=== PATIENT | male | born 1975 | race Caucasian/White ===

== ENCOUNTER 2019-10-23 08:38 | Outpatient (BNVA) | payer OTHER, SELFPAY | END 2019-11-10 23:59 | PROVIDERS: Family Provider Nurse Practitioner Family; PCP Nurse Practitioner Family; Visit Provider Nurse Practitioner Psychiatric/Mental Health | DX: F33.1 Major depressive disorder, recurrent, moderate (principal); F41.1 Generalized anxiety disorder; F17.210 Nicotine dependence, cigarettes, uncomplicated | CPT/HCPCS: 99213 ==

== ENCOUNTER 2020-03-18 16:29 | Emergency (ER) | payer SELFPAY ==
[2020-03-18 16:52] VITALS: BP 138/87; PULSE 75; RESP 18; TEMP 36.7; O2SAT 96; BMI 30.7
== END 2020-03-18 19:34 | disposition left against medical advice (07) ==
LOC: ER 16:41
PROVIDERS: Emergency Provider Nurse Practitioner Family; PCP Family Medicine
DX: Z53.21 Procedure and treatment not carried out due to patient leaving prior to being seen by health care provider (principal)
CPT/HCPCS: 99281

== ENCOUNTER → 2020-05-10 07:44 | Outpatient (BNVA) | payer MEDICAID, SELFPAY | PROVIDERS: Visit Provider Nurse Practitioner Psychiatric/Mental Health | DX: F33.9 Major depressive disorder, recurrent, unspecified (principal); F41.1 Generalized anxiety disorder; F10.20 Alcohol dependence, uncomplicated | CPT/HCPCS: 99212 ==

== ENCOUNTER → 2020-05-12 07:55 | Outpatient (BNVA) | payer MEDICAID, SELFPAY | PROVIDERS: Visit Provider Counselor Professional | DX: F33.9 Major depressive disorder, recurrent, unspecified (principal); F41.1 Generalized anxiety disorder; F10.20 Alcohol dependence, uncomplicated | CPT/HCPCS: 90834 ==

== ENCOUNTER → 2020-06-07 10:00 | Outpatient (BNVA) | payer MEDICAID, SELFPAY | PROVIDERS: Visit Provider Nurse Practitioner Psychiatric/Mental Health | DX: F33.9 Major depressive disorder, recurrent, unspecified (principal); F41.1 Generalized anxiety disorder; F10.20 Alcohol dependence, uncomplicated | CPT/HCPCS: 99212 ==

== ENCOUNTER → 2020-07-13 09:14 | Outpatient (BNVA) | payer MEDICAID, SELFPAY | PROVIDERS: Visit Provider Nurse Practitioner Psychiatric/Mental Health | DX: F33.9 Major depressive disorder, recurrent, unspecified (principal); F41.1 Generalized anxiety disorder | CPT/HCPCS: G0463 ==

== ENCOUNTER → 2020-10-05 07:39 | Outpatient (BNVA) | payer MEDICAID, SELFPAY | PROVIDERS: Visit Provider Nurse Practitioner Psychiatric/Mental Health | DX: F33.9 Major depressive disorder, recurrent, unspecified (principal); F41.1 Generalized anxiety disorder | CPT/HCPCS: 99212 ==

== ENCOUNTER 2020-10-11 09:08 | Observation (INO) | payer MEDICAID, SELFPAY ==
[2020-10-11 09:13] VITALS: BP 134/91; PULSE 73; RESP 16; TEMP 36.6; O2SAT 98; BMI 30.7
--- NOTE | 2020-10-11 09:16 | XRR_ITS ---
PROCEDURE INFORMATION: Exam: XR Chest, 1 View Exam date and time: 10/11/2020 9:20 AM Age: 45 years old Clinical indication: Chest pain; Prior surgery; Surgery type: Spine; Additional info: Chest pain/arm pain since am TECHNIQUE: Imaging protocol: XR of the chest Views: 1 view. COMPARISON: CR Chest 2 views* [id number] 08/13/2019 4:00 PM FINDINGS: Lungs: Subtle airspace disease right lung base. Pleural space: Unremarkable. No pleural effusion. No pneumothorax. Heart/Mediastinum: Unremarkable. No cardiomegaly. Bones/joints: Caldwell rods and pedicle plates stabilizing the thoracic spine. XR/XR chest 1V portable [id number] IMPRESSION: Subtle airspace disease right lung base. Consider two-view chest.
--- NOTE | 2020-10-11 09:17 | ECG_ITS ---
[facility] Test Date: 2020-10-11 Pat Name: Miky Edwards Department: Room: Gender: Male Superintendent Of Generation: : 1975 Requested By: Allan Montez Order Number: [id number] Delia MD: Archana Marroquin M.D. Measurements Intervals [place] Rate: 68 P: 13 [place]: 167 QRS: 34 QRSD: 105 T: 55 QT: 377 QTc: 403 Interpretive Statements SINUS RHYTHM Compared to ECG 08/13/2019 15:36:58 No significant changes Electronically Signed On 10-11-2020 20:29:16 TURRET PUNCH OPERATOR by Archana Marroquin M.D. [id number] f
--- NOTE | 2020-10-11 09:20 | W.ED.CHESTPA ---
HPI - Chest Pain General: Chief Complaint: Chest Pain Stated Complaint: CHEST PAIN/ ARM PAIN Time Seen by Provider: 10/11/20 09:10 History of Present Illness: HPI narrative: 45-year-old male comes in complaining chest pain began this morning about 2 hours prior to arrival. He was sitting at rest watching videos on the computer when it began. He notes that with palpation across the anterior chest as well as with deep breathing the pain is worse. He reports he has a history of hypertension and rapid heart irregular heart rate for which she takes metoprolol and lisinopril. He is not on any blood thinners. In 2017 he reports having a stress test which evidently was normal. Has not had any nausea vomiting or diaphoresis with this. He has no positio manges will exacerbate his pain. MD complaint: chest pain Onset (ago): hour(s) Timing of current episode: episodic Onset: during rest Pain location: substernal and right chest Pain radiation: right arm and left arm Severity: moderate Quality: sharp Relieving factors: nothing Exacerbating factors: inspiration and palpation Associated symptoms: Reports vomiting; Deny abdominal pain, diaphoresis, dyspnea, fever(s), leg edema, nausea, palpitations, sense of impending doom or syncope Treatment prior to arrival: none Review of Systems Const: Denies: fever(s) or diaphoresis ENMT: Denies: throat pain, ear or mastoid pain, nasal discharge or nasal congestion Card: Denies: palpitations or syncope Resp: Denies: dyspnea GI: Reports: vomiting; Denies: abdominal pain or nausea : Denies: flank pain, dysuria, urinary frequency or urinary urgency Skin/Breast: Denies: rash or pruritus [facility] PFSH: Medical History (Updated 10/11/20 @ 13:07 by Allan Cardona DO) Alcohol dependence Benign essential HTN Fatigue Heart disease High blood pressure Smoking Ventricular arrhythmia Surgical History History of cholecystectomy Previous back surgery Family History Other CAD (coronary artery disease) Cancer Hypertension Social History Smoking and tobacco status: current every day smoker cigarettes Packs smoked per day: 1.5 Alcohol intake: current Alcohol intake frequency: 3 or more drinks per day Alcohol type: beer Household members: spouse and children Marital status: Number of children: 2 Highest education level completed: 8th Grade service: No Current occupational status: unemployed Pets and animals: Yes Current gender identity: Male Physical Exam Const: COMMON NORMALS: no acute distress GENERAL APPEARANCE: cooperative and comfortable ORIENTATION/CONSCIOUSNESS: Yes awake, Yes oriented to person, Yes oriented to place and Yes oriented to time HENMT: COMMON NORMALS: normocephalic, atraumatic and hearing grossly normal bilaterally HEAD & SCALP: normocephalic and atraumatic Neck/C-Spine: COMMON NORMALS: no JVD Chest: OTHER: Chest pain reproducible with palpation along the right sternal border in the lower section as well as with deep inspiration. Resp: COMMON NORMALS: normal respiratory effort, No retractions, No use of accessory muscles and clear to auscultation bilaterally AUSCULTATION: clear to auscultation bilaterally Cardio: COMMON NORMALS: no JVD, regular rate, regular rhythm and No murmurs present (Cardio) RATE: regular rate RHYTHM: regular rhythm GI: COMMON NORMALS: Soft to palpation and No hepatosplenomegaly present AUSCULTATION: Yes normoactive bowel sounds PALPATION: Yes Soft to palpation, No Tenderness to palpation present (GI), No Guarding due to palpation present (GI) and Yes No hepatosplenomegaly present Extremity: COMMON NORMALS: normal to inspection, capillary refill normal, no clubbing, cyanosis or edema, no calf tenderness and no pedal edema Neuro: SENSORIUM/ORIENTATION: Yes oriented to person, Yes oriented to place and Yes oriented to time Skin: COMMON NORMALS: no rashes or lesions noted GENERAL SKIN EXAM: no rashes or lesions noted Course Vital Signs: Vital signs: Vital Signs Temperature 97.8 F 10/11/20 09:13 Pulse Rate 72 10/11/20 11:03 Respiratory Rate 18 10/11/20 11:03 Blood Pressure 127/77 10/11/20 11:03 Pulse Oximetry 96 10/11/20 11:03 MDM - Chest Pain MDM Narrative: Medical decision making narrative: Positive troponin. His EKGs are unremarkable as to our troponin was also higher by 100. Is given Lovenox and then after discussion with Dr. Kim started on heparin and Nitropaste he is pain-free at this time will admit to hospitalist and consult cardiology Dr. Kim will be seeing him discussed with the patient. Lab Data: Labs: Lab Results 10/11/20 10/11/20 10/11/20 Range/Units 10:30 10:30 10:30 WBC 6.3 (4.0-10.0) 10^3/ uL RBC 5.36 H (4.1-5.3) 10^6/u L Hgb 17.1 H (11.7-16.6) g/dL Hct 52.0 (42.0-52.0) % MCV 97.0 H (80-94) fL MCH 31.9 (28.0-34.0) pg MCHC 32.9 (30.0-36.0) g/dL RDW 14.6 (12.1-15.1) % Plt Count 275 (130-400) 10^3/c mm MPV 10.0 (7.4-10.4) fL Neut % (Auto) 58.6 % Lymph % (Auto) 31.2 % [place] % (Auto) 6.3 % Eos % (Auto) 3.2 % Baso % (Auto) 0.5 % Neut # (Auto) 3.71 (1.8-7.7) 10^3/u L Lymph # (Auto) 2.0 (0.8-4.8) 10^3/u L [place] # (Auto) 0.4 (0.2-0.9) 10^3/u L Eos # (Auto) 0.2 (0.0-0.8) 10^3/u L Baso # (Auto) 0.0 (0.0-0.1) 10^3/u L Nucleated RBC % (a uto) 0 % Nucleated RBCs # 0.0 /100WBC Sodium 139 (136-145) mmol/L Potassium 4.9 (3.5-5.1) mmol/L Chloride 102 (98-107) mmol/L Carbon Dioxide 28 (22-29) mmol/L Anion Gap 13.9 (5-19) BUN 8 (6-20) mg/dL Creatinine 0.8 (0.7-1.2) mg/dL GFR Calculation 104.1 (90-130) mL/min Glucose 75 (65-115) mg/dL Calculated Osmolal ity 285 (285-295) mOsm/k g Calcium 9.5 (8.5-10.5) mg/dL Total Bilirubin 0.3 (0.15-1.2) mg/dL AST 21 (0-40) U/L ALT 18 (0-41) U/L Alkaline Phosphata se 86 (40-130) IU/L Troponin T Baselin e 305 H* (0-15) ng/L Troponin T 120 Min ronny (0-15) ng/L Delta Troponin T (0-10) ABS# Total Protein 6.6 (6.6-8.7) g/dL Albumin 4.3 (3.5-5.2) g/dL Globulin 2.3 (1.3-4.6) g/dL 10/11/20 Range/Units 11:45 WBC (4.0-10.0) 10^3/ uL RBC (4.1-5.3) 10^6/u L Hgb (11.7-16.6) g/dL Hct (42.0-52.0) % MCV (80-94) fL MCH (28.0-34.0) pg MCHC (30.0-36.0) g/dL RDW (12.1-15.1) % Plt Count (130-400) 10^3/c mm MPV (7.4-10.4) fL Neut % (Auto) % Lymph % (Auto) % [place] % (Auto) % Eos % (Auto) % Baso % (Auto) % Neut # (Auto) (1.8-7.7) 10^3/u L Lymph # (Auto) (0.8-4.8) 10^3/u L [place] # (Auto) (0.2-0.9) 10^3/u L Eos # (Auto) (0.0-0.8) 10^3/u L Baso # (Auto) (0.0-0.1) 10^3/u L Nucleated RBC % (a uto) % Nucleated RBCs # /100WBC Sodium (136-145) mmol/L Potassium (3.5-5.1) mmol/L Chloride (98-107) mmol/L Carbon Dioxide (22-29) mmol/L Anion Gap (5-19) BUN (6-20) mg/dL Creatinine (0.7-1.2) mg/dL GFR Calculation (90-130) mL/min Glucose (65-115) mg/dL Calculated Osmolal ity (285-295) mOsm/k g Calcium (8.5-10.5) mg/dL Total Bilirubin (0.15-1.2) mg/dL AST (0-40) U/L ALT (0-41) U/L Alkaline Phosphata se (40-130) IU/L Troponin T Baselin e (0-15) ng/L Troponin T 120 Min ronny 416.6 H (0-15) ng/L Delta Troponin T 111.6 H* (0-10) ABS# Total Protein (6.6-8.7) g/dL Albumin (3.5-5.2) g/dL Globulin (1.3-4.6) g/dL Discharge Plan Discharge Patient Disposition: Admitted As Inpatient Clinical Impression: Elevated troponin, Non-ST elevation ID (NSTEMI) Condition: Stable Prescriptions: No Action metoprolol tartrate 25 mg tablet See Rx Instructions .ROUTE .COMPLEX Qty: 60 RF: 3 venlafaxine 25 mg tablet 25 mg PO BID@06,20 RF: 0 lisinopril 5 mg tablet 5 mg PO DAILY@06 RF: 0 Coding Level of Care Code ED Disc Recordist for Liv Fwd Exam Comprehensive
[2020-10-11 10:36] LABS: Basophils % 0.5 %; Eosinophils # 0.2 10^3/uL (0.0-0.8); Eosinophils % 3.2 %; Hemoglobin 17.1 g/dL (11.7-16.6); Lymphocytes % 31.2 %; Mean Corpuscular HGB Conc 32.9 g/dL (30.0-36.0); Mean Corpuscular Hemoglobin 31.9 pg (28.0-34.0); Monocytes # 0.4 10^3/uL (0.2-0.9); Monocytes % 6.3 %; Neutrophils # 3.71 10^3/uL (1.8-7.7); Neutrophils % 58.6 %; Nucleated Red Blood Cells % 0 %; Platelet Count 275 10^3/cmm (130-400); Red Blood Count 5.36 10^6/uL (4.1-5.3); Red Cell Distribution Width 14.6 % (12.1-15.1); White Blood Count 6.3 10^3/uL (4.0-10.0)
--- NOTE | 2020-10-11 10:36 | XRR_ITS ---
PROCEDURE INFORMATION: Exam: XR Chest, 2 Views Exam date and time: 10/11/2020 10:41 AM Age: 45 years old Clinical indication: Chest pain; Type not specified; Prior surgery; Surgery type: Back scoliosis TECHNIQUE: Imaging protocol: XR of the chest Views: 2 views. COMPARISON: CR XR chest 1V portable [id number] 10/11/2020 9:16 AM FINDINGS: Lungs: Lungs are well aerated without a focal area of consolidation. Pleural space: Unremarkable. No pleural effusion. No pneumothorax. Heart/Mediastinum: Unremarkable. No cardiomegaly. Bones/joints: Caldwell rods and pedicle plates stabilizing the thoracic spine. XR/XR chest 2V* [id number] IMPRESSION: Lungs are well aerated without a focal area of consolidation.
[2020-10-11 10:57] LABS: Alanine Aminotransferase 18 U/L (0-41); Albumin Level 4.3 g/dL (3.5-5.2); Alkaline Phosphatase 86 IU/L (40-130); Anion Gap 13.9 (5-19); Aspartate Amino Transferase 21 U/L (0-40); Blood Urea Nitrogen 8 mg/dL (6-20); Calcium 9.5 mg/dL (8.5-10.5); Carbon Dioxide 28 mmol/L (22-29); Chloride 102 mmol/L (98-107); Globulin 2.3 g/dL (1.3-4.6); Glomerular Filtration Rate 104.1 mL/min (90-130); Glucose 75 mg/dL (65-115); Osmolality Calculated 285 mOsm/kg (285-295); Potassium 4.9 mmol/L (3.5-5.1); Sodium 139 mmol/L (136-145); Total Bilirubin 0.3 mg/dL (0.15-1.2); Total Protein 6.6 g/dL (6.6-8.7)
[2020-10-11 11:01] LABS: Troponin(5th) Baseline 305 ng/L (0-15)
[2020-10-11 11:03] VITALS: BP 127/77; PULSE 72; RESP 18; O2SAT 96
--- NOTE | 2020-10-11 11:17 | ECG_ITS ---
[facility] Test Date: 2020-10-11 Pat Name: Miky Edwards Department: Room: Gender: Male Comber Fixer: : 1975 Requested By: Allan Montez Order Number: [id number] Lin MD: Archana Marroquin M.D. Measurements Intervals [place] Rate: 73 P: 32 [place]: 176 QRS: 47 QRSD: 103 T: 63 QT: 370 QTc: 410 Interpretive Statements SINUS RHYTHM Compared to ECG 10/11/2020 09:14:16 No significant changes Electronically Signed On 10-11-2020 20:54:51 PARTS REPRESENTATIVE by Archana Marroquin M.D. [id number] f
[2020-10-11] MEDS: enoxaparin 100 mg/mL Syringe SUBCUT (11:48)
[2020-10-11] MEDS: nitroglycerin 1 gm/inch oint Pkt 1 INCH TOPICAL (11:48)
--- NOTE | 2020-10-11 12:07 | PC.NURSE ---
Patient assigned to room 108 on 1[address]. Room is not clean at this time. Called to establish timeline for patient report and transfer of patient. Nurse agreed to call for report once the room is ready. Will call back hourly for update.
[2020-10-11 12:22] LABS: Troponin 5 2HR 416.6 ng/L (0-15); Troponin 5 2HR Delta 111.6 ABS# (0-10)
--- NOTE | 2020-10-11 12:40 | PC.NURSE ---
Room 108 now unavailable
--- NOTE | 2020-10-11 13:20 | PM.HP ---
Providers/Chief Complaint Chief Complaint: CHEST PAIN/ ARM PAIN History of Present Illness Miky Edwards is a 45 year old male with past medical history of hypertension, arrhythmias, regular alcohol intake and tobacco abuse who presented to emergency room with complaint of chest pain which started prior to presentation. It was substernal with radiation to both shoulders. Moderate in intensity. Described as tightness and pain. Lasted about 20 to 25 minutes. Improved with aspirin and nitroglycerin provided in ambulance. Then the patient received nitro paste in the emergency room which relieved the pain. EKG showed no acute ischemic changes. Chest x-ray was unremarkable. However the troponin was significantly elevated. The patient reports similar pain in the past. He was told before that he had irregular heartbeats. Does not remember the exact type. Denies associated diaphoresis, shortness of breath, palpitations, dizziness or lightheadedness, nausea or vomiting, heartburn. Review of Systems General: Reports: 10 or more systems reviewed and unremarkable except in HPI and below Medications/Allergies Home Medications Medication Instructions Recorded Confirmed Last Taken Type metoprolol tartrate 25 mg tablet See Rx Instructions .ROUTE 10/04/20 10/11/20 10/11/20 Rx .COMPLEX #60 tablet lisinopril 5 mg PO DAILY@06 10/11/20 10/11/20 10/11/20 History venlafaxine 25 mg PO BID@10/11/20 10/11/20 10/11/20 History Allergies Allergy/AdvReac Type Severity Reaction Status Date / Time Penicillins Allergy Unknown rash Verified 07/27/20 09:07 PFSH Acute PFSH: Medical History (Updated 10/11/20 @ 13:07 by Allan Cardona DO) Alcohol dependence Benign essential HTN Fatigue Heart disease High blood pressure Smoking Ventricular arrhythmia Surgical History History of cholecystectomy Previous back surgery Family History Other CAD (coronary artery disease) Cancer Hypertension Social History Smoking and tobacco status: current every day smoker cigarettes Packs smoked per day: 1.5 Alcohol intake: current Alcohol intake frequency: 3 or more drinks per day Alcohol type: beer Household members: spouse and children Marital status: Number of children: 2 Highest education level completed: 8th Grade service: No Current occupational status: unemployed Pets and animals: Yes Current gender identity: Male Vitals/I&O/Wt Last Vital Signs Temp 97.8 F 10/11/20 09:13 Pulse 72 10/11/20 11:03 Resp 18 10/11/20 11:03 BP 127/77 10/11/20 11:03 Pulse Ox 96 10/11/20 11:03 Weight last 48 hrs Weight 99.79 kg Physical Exam Narrative: EXAM NARRATIVE: The patient is awake alert and oriented. No acute distress. Mood and affect are appropriate. Responses are adequate. Skin is warm and dry. Moist mucous memories. Eyes PERRLA, extraocular muscles are intact. Normal speech. Neck supple. No JVD Lungs clear to auscultation bilaterally. No wheezes or crackles Heart S1, S2, regular Abdomen soft, nontender, bowel sounds are present Extremities no edema cyanosis or calf tenderness bilaterally. No tremors. Neuro exam is nonfocal. Data : 10/11/20 10:30 10/11/20 10:30 Other Labs: Laboratory Results WBC 6.3 10^3/uL (4.0-10.0) 10/11/20 10:30 RBC 5.36 10^6/uL (4.1-5.3) H 10/11/20 10:30 Hgb 17.1 g/dL (11.7-16.6) H 10/11/20 10:30 Hct 52.0 % (42.0-52.0) 10/11/20 10:30 MCV 97.0 fL (80-94) H 10/11/20 10:30 MCH 31.9 pg (28.0-34.0) 10/11/20 10:30 MCHC 32.9 g/dL (30.0-36.0) 10/11/20 10:30 RDW 14.6 % (12.1-15.1) 10/11/20 10:30 Plt Count 275 10^3/cmm (130-400) 10/11/20 10:30 MPV 10.0 fL (7.4-10.4) 10/11/20 10:30 Neut % (Auto) 58.6 % 10/11/20 10:30 Lymph % (Auto) 31.2 % 10/11/20 10:30 [place] % (Auto) 6.3 % 10/11/20 10:30 Eos % (Auto) 3.2 % 10/11/20 10:30 Baso % (Auto) 0.5 % 10/11/20 10:30 Neut # (Auto) 3.71 10^3/uL (1.8-7.7) 10/11/20 10:30 Lymph # (Auto) 2.0 10^3/uL (0.8-4.8) 10/11/20 10:30 [place] # (Auto) 0.4 10^3/uL (0.2-0.9) 10/11/20 10:30 Eos # (Auto) 0.2 10^3/uL (0.0-0.8) 10/11/20 10:30 Baso # (Auto) 0.0 10^3/uL (0.0-0.1) 10/11/20 10:30 Nucleated RBC % (auto) 0 % 10/11/20 10:30 Nucleated RBCs # 0.0 /100WBC 10/11/20 10:30 Sodium 139 mmol/L (136-145) 10/11/20 10:30 Potassium 4.9 mmol/L (3.5-5.1) 10/11/20 10:30 Chloride 102 mmol/L (98-107) 10/11/20 10:30 Carbon Dioxide 28 mmol/L (22-29) 10/11/20 10:30 Anion Gap 13.9 (5-19) 10/11/20 10:30 BUN 8 mg/dL (6-20) 10/11/20 10:30 Creatinine 0.8 mg/dL (0.7-1.2) 10/11/20 10:30 GFR Calculation 104.1 mL/min (90-130) 10/11/20 10:30 Glucose 75 mg/dL (65-115) 10/11/20 10:30 Calculated Osmolality 285 mOsm/kg (285-295) 10/11/20 10:30 Calcium 9.5 mg/dL (8.5-10.5) 10/11/20 10:30 Total Bilirubin 0.3 mg/dL (0.15-1.2) 12/21/20 10:30 AST 21 U/L (0-40) 10/11/20 10:30 ALT 18 U/L (0-41) 10/11/20 10:30 Alkaline Phosphatase 86 IU/L (40-130) 10/11/20 10:30 Troponin T Baseline 305 ng/L (0-15) H* 10/11/20 10:30 Troponin T 120 Minute 416.6 ng/L (0-15) H 10/11/20 11:45 Delta Troponin T 111.6 ABS# (0-10) H* 10/11/20 11:45 Total Protein 6.6 g/dL (6.6-8.7) 10/11/20 10:30 Albumin 4.3 g/dL (3.5-5.2) 10/11/20 10:30 Globulin 2.3 g/dL (1.3-4.6) 10/11/20 10:30 Impressions Chest X-Ray 10/11/20 10:36 IMPRESSION: Lungs are well aerated without a focal area of consolidation. A&P Additional A&P Information 45-year-old male with past medical history of hypertension, tobacco and alcohol abuse, possible arrhythmias in the past who is presenting with chest pain. Has elevated troponin. EKG and chest x-ray are unremarkable. Acute coronary syndrome/non-ST elevation ND. Dr. Kim, cardiology is called. We appreciate his input. The patient is started on Lovenox. He already has received aspirin. Currently on Nitropaste. Chest pain has resolved. We will continue beta-sandor. We will add Lipitor 80 mg daily. We will continue tracing troponin level and monitoring him on telemetry. We will check his fasting lipids in the morning. Hypertension. Currently well controlled. Continue current management. History of tobacco abuse. Counseling is provided. The patient verbalized understanding. However he expressed no clear commitment to quitting. Excessive alcohol intake. The patient reports drinking on daily basis occasionally in large amounts. We will start him on CIWA protocol and vitamin replacements. DVT prophylaxis. Lovenox. CODE STATUS. He wants to be full code. The plan of care was discussed with the patient. He verbalized understanding and agreement. Attestations Medical Necessity Statement*: Probably the patient will require 1 or 2 midnights. Observation. Coding Level of Care Code Acute Flight Line Service Attendant for joshua Crisostomo
[2020-10-11 14:00] LABS: Lipase 32 U/L (13-60)
--- NOTE | 2020-10-11 15:17 | ECG_ITS ---
[facility] Test Date: 2020-10-11 Pat Name: Miky Edwards Department: Room: Gender: Male Sample Steamer: : 1975 Requested By: Allan Montez Order Number: [id number] Lin MD: Archana Marroquin M.D. Measurements Intervals [place] Rate: 74 P: 39 [place]: 181 QRS: 45 QRSD: 116 T: 49 QT: 389 QTc: 434 Interpretive Statements SINUS RHYTHM MODERATE INTRAVENTRICULAR CONDUCTION DELAY [110+ ms QRS DURATION] Compared to ECG 10/11/2020 11:14:28 Intraventricular conduction delay now present Electronically Signed On 10-11-2020 20:49:40 OVEN OPERATOR by Archana Marroquin M.D. [id number]
--- NOTE | 2020-10-11 16:58 | PM.CONSULT ---
Providers/Reason For Consult Consulting Physican/Specialty*: ARMIN Kim MD/cardiology Reason for Consult*: Patient with chest pain and elevated troponin T Attending Physician: Judah Jimenes History of Present Illness History of Present Illness Miky Edwards is a 45 year old male with a history of hypertension, heavy smoking abuse and alcohol abuse, presented to the emergency room today with complaints of a prolonged episode of chest pain. Patient has a history of chest pain off and on for many years. He has been in his baseline state of health up until this morning when he had an episode of prolonged chest pain.The pain was pressure-like in nature, radiating across the chest, to both shoulders and also down to both arms. He had some tingling, nausea, vomiting and shortness of breath with the pain. the intensity of the pain went up to 10/10. After waiting 15 minutes or so, his called the ambulance and the patient was brought to the emergency room. In the ambulance, he was given 2 aspirin and 1 sublingual nitroglycerin. The pain started subsiding. It took almost 2 hours for the pain to completely go away. At the time of my examination, patient is pain-free. He may have some tight feeling in the chest intermittently. He has no other associated symptoms. He has no previous history for any myocardial infarction or congestive heart failure. He had a couple of stress test in the past which were unremarkable. He might have have taken 100 ounces of beer last night. He smokes 1-1/2 to 2 pack a day for the last more than 30 years. He also uses marijuana. No other substance abuse. His father had a myocardial infarction in his 50s or 60s. He has a history of high blood pressure, GERD. Review of Systems Narrative: CONSTITUTIONAL: No fever or chills. EYES: No blurring of vision or other visual disturbances lately. ENT: No hoarseness of voice, auditory disturbances or sore throat. CARDIOVASCULAR: As mentioned above. RESPIRATORY: No significant cough. May have some dyspnea on exertion. GASTROINTESTINAL: No hematemesis or melena. GENITOURINARY: No dysuria or hematuria. INTEGUMENTARY: No skin rashes or history of skin cancer. NEURO: No transient ischemic attacks or amaurosis. PSYCHIATRIC: No history of psychosis or major depression. HEMATOLOGIC: No bleeding disorders or significant anemia. ENDOCRINE: No history of polyuria or polydipsia. MUSCULOSKELETAL: No recent joint pain or swelling. ALLERGY/IMMUNOLOGY: As mentioned above. Meds/Allergies Home Medications and Allergies Home Medications Medication Instructions Recorded Confirmed Last Taken Type metoprolol tartrate 25 mg tablet See Rx Instructions .ROUTE 10/04/20 10/11/20 10/11/20 Rx .COMPLEX #60 tablet lisinopril 5 mg PO DAILY@06 10/11/20 10/11/20 10/11/20 History venlafaxine 25 mg PO BID@10/11/20 10/11/20 10/11/20 History Allergies Allergy/AdvReac Type Severity Reaction Status Date / Time Penicillins Allergy Unknown rash Verified 07/27/20 09:07 PFSH Acute PFSH: Medical History Alcohol dependence Benign essential HTN Fatigue Heart disease High blood pressure Smoking Ventricular arrhythmia Surgical History History of cholecystectomy Previous back surgery Family History Other CAD (coronary artery disease) Cancer Hypertension Social History Smoking and tobacco status: current every day smoker cigarettes Packs smoked per day: 1.5 Alcohol intake: current Alcohol intake frequency: 3 or more drinks per day Alcohol type: beer Household members: spouse and children Marital status: Number of children: 2 Highest education level completed: 8th Grade service: No Current occupational status: unemployed Pets and animals: Yes Current gender identity: Male Vitals/I&O/Wt Last Vital Signs Temp 97.8 F 10/11/20 09:13 Pulse 72 10/11/20 11:03 Resp 18 10/11/20 11:03 BP 127/77 10/11/20 11:03 Pulse Ox 96 10/11/20 11:03 Weight last 48 hrs Weight 220 lb Physical Exam Narrative: EXAM NARRATIVE: GENERAL: The patient is alert and oriented times three. Not in any acute distress. Unkempt HEENT: No significant pallor, icterus or lymphadenopathy. The pupils are reactant to light. Oral cavity: There are no mucous membrane lesions. Funduscopic examination: The fundus is not visually NECK: Trachea appears to be central. No masses noted. No JVD or thyromegaly appreciated. No carotid bruit. RESPIRATORY: Chest is symmetrical. No intercostals muscle retraction or any accessory muscle activation. There is no chest wall tenderness. Breath sounds are heard bilaterally. No rales or rhonchi heard. No evidence of any consolidation. BREASTS: Deferred. HEART: The PMI could not be palpated. No other palpable precordial events. First and second heart sounds are normal. No S3 or S4. No significant murmurs. No pericardial rub ABDOMEN: No vessel pulsations or distention. No tenderness. No organomegaly appreciated. No abdominal bruit. Bowel sounds are normally heard. : Deferred. RECTAL: Deferred. LYMPHATIC: No lymphadenopathy noted in the neck or groin. EXTREMITIES: No edema or cyanosis. No clubbing. Peripheral pulses are palpable in fairly good volume and amplitude. MUSCULOSKELETAL: No acute joint deformities or swelling SKIN: There are no significant scars or skin rash noted. NEUROPSYCHIATRIC: The patient is alert and oriented x3. Appears to be in a good mood. The higher functions are grossly within normal limits. No tremors or rigidity noted. Data Labs: Other Labs: Laboratory Last Values WBC 6.3 10^3/uL (4.0- 10.0) 10/11/20 10:30 RBC 5.36 10^6/uL (4.1 -5.3) H 10/11/20 10:30 Hgb 17.1 g/dL (11.7-1 6.6) H 10/11/20 10:30 Hct 52.0 % (42.0-52.0 ) 10/11/20 10:30 MCV 97.0 fL (80-94) H 10/11/20 10:30 MCH 31.9 pg (28.0-34. 0) 10/11/20 10:30 MCHC 32.9 g/dL (30.0-3 6.0) 10/11/20 10:30 RDW 14.6 % (12.1-15.1 ) 10/11/20 10:30 Plt Count 275 10^3/cmm (130 -400) 10/11/20 10:30 MPV 10.0 fL (7.4-10.4 ) 10/11/20 10:30 Neut % (Auto) 58.6 % 10/11/20 10:30 Lymph % (Auto) 31.2 % 10/11/20 10:30 Villalba % (Auto) 6.3 % 10/11/20 10:30 Eos % (Auto) 3.2 % 10/11/20 10:30 Baso % (Auto) 0.5 % 10/11/20 10:30 Neut # (Auto) 3.71 10^3/uL (1.8 -7.7) 10/11/20 10:30 Lymph # (Auto) 2.0 10^3/uL (0.8- 4.8) 10/11/20 10:30 Villalba # (Auto) 0.4 10^3/uL (0.2- 0.9) 10/11/20 10:30 Eos # (Auto) 0.2 10^3/uL (0.0- 0.8) 10/11/20 10:30 Baso # (Auto) 0.0 10^3/uL (0.0- 0.1) 10/11/20 10:30 Nucleated RBC % (a uto) 0 % 10/11/20 10:30 Nucleated RBCs # 0.0 /100WBC 10/11/20 10:30 Sodium 139 mmol/L (136-1 45) 10/11/20 10:30 Potassium 4.9 mmol/L (3.5-5 .1) 10/11/20 10:30 Chloride 102 mmol/L (98-10 7) 10/11/20 10:30 Carbon Dioxide 28 mmol/L (22-29) 10/11/20 10:30 Anion Gap 13.9 (5-19) 10/11/20 10:30 BUN 8 mg/dL (6-20) 10/11/20 10:30 Creatinine 0.8 mg/dL (0.7-1. 2) 10/11/20 10:30 GFR Calculation 104.1 mL/min (90- 130) 10/11/20 10:30 Glucose 75 mg/dL (65-115) 10/11/20 10:30 Calculated Osmolal ity 285 mOsm/kg (285- 295) 10/11/20 10:30 Calcium 9.5 mg/dL (8.5-10 .5) 10/11/20 10:30 Total Bilirubin 0.3 mg/dL (0.15-1 .2) 10/11/20 10:30 AST 21 U/L (0-40) 10/11/20 10:30 ALT 18 U/L (0-41) 10/11/20 10:30 Alkaline Phosphata se 86 IU/L (40-130) 10/11/20 10:30 Troponin T Baselin e 305 ng/L (0-15) H* 10/11/20 10:30 Troponin T 120 Min ronny 416.6 ng/L (0-15) H 10/11/20 11:45 Delta Troponin T 111.6 ABS# (0-10) H* 10/11/20 11:45 Troponin T Hi Sens 6Hr 292.3 ng/L (0-15) H 10/11/20 16:19 Troponin T Hi Sens 6Hr Delta -12.7 ng/L (0-12) L 10/11/20 16:19 Total Protein 6.6 g/dL (6.6-8.7 ) 10/11/20 10:30 Albumin 4.3 g/dL (3.5-5.2 ) 10/11/20 10:30 Globulin 2.3 g/dL (1.3-4.6 ) 10/11/20 10:30 Lipase 32 U/L (13-60) 10/11/20 10:30 Imaging^: CXR: My impression: Normal cardiac silhouette with no lung infiltrate. No acute pathology noted EKG^: EKG 1: My Interpretation: The EKG shows a normal sinus rhythm with a normal ST-T's. Nonspecific IVCD. A&P Assessment and plan (1) Acute non-ST elevation myocardial infarction (NSTEMI): Patient has clinical features consistent with a non-ST elevation myocardial infarction. Hemodynamically seems to be stable. Patient may be treated with subcu Lovenox, aspirin by mouth, Plavix, statin and beta-blockers. An echocardiogram would be helpful to evaluate the LV function and rule out any other pathology. Status: Acute (2) Benign essential HTN: Currently the blood pressure is a stage II. We will try to optimize the antihypertensive medications. The cholesterol status is not known. Will do a lipid profile on the blood in the lab. Status: Acute (3) Alcohol dependence: Patient is strongly advised to quit drinking Status: Chronic Qualifiers: Complication of substance-induced condition: uncomplicated Substance use status: with intoxication Qualified Code(s): F10.220 - Alcohol dependence with intoxication, uncomplicated (4) Tobacco dependence due to cigarettes: Patient strongly advised to quit smoking. Status: Chronic Additional A&P Information Other problems are History of major depressive illness Possible COPD after reviewing the above and also based on the patient's clinical progress, further recommendations will be made. He will have the echocardiogram in the morning. We may keep him n.p.o. after midnight. Patient may benefit from a cardiac catheterization, to further evaluate the coronary status and decide on further management. This will be decided after reviewing the echocardiogram. Coding Level of Care Code Acute News Correspondent for joshua Crisostomo Medical Decision Making High Complexity Diagnoses Acute non-ST elevation myocardial infarction (NSTEMI) I21.4 Benign essential HTN I10 Alcohol dependence F10.220 Complication of substance-induced condition: uncomplicated Substance use status: with intoxication Tobacco dependence due to cigarettes F17.210
[2020-10-11 17:03] VITALS: BP 134/83; PULSE 70; RESP 15; O2SAT 97
[2020-10-11 17:20] VITALS: BP 156/109; PULSE 73; RESP 19; TEMP 36.4; O2SAT 92
[2020-10-11 17:30] LABS: Troponin 5 6HR 292.3 ng/L (0-15); Troponin 5 6HR Delta -12.7 ng/L (0-12)
[2020-10-11 17:56] VITALS: BP 146/90
[2020-10-11] MEDS: clopidogrel 300 mg Tablet PO (18:01)
[2020-10-11 20:00] VITALS: BP 140/102; PULSE 73; RESP 19; TEMP 36.4
[2020-10-11] MEDS: atorvastatin 40 mg Tablet 80 MG PO (20:51)
[2020-10-11] MEDS: metoprolol tartrate 25 mg Tablet PO (20:51)
[2020-10-12] VITALS (26 sets, daily range): BP systolic 115–158; BP diastolic 78–104; PULSE 59–93; RESP 11–43; TEMP 36.4–36.7; O2SAT 88–99
[2020-10-12] MEDS: enoxaparin 100 mg/mL Syringe SUBCUT (00:12)
[2020-10-12 04:49] LABS: Basophils % 0.6 %; Eosinophils # 0.2 10^3/uL (0.0-0.8); Eosinophils % 2.9 %; Hematocrit 52.3 % (42.0-52.0); Hemoglobin 17.4 g/dL (11.7-16.6); Lymphocytes # 2.6 10^3/uL (0.8-4.8); Lymphocytes % 39.4 %; Mean Corpuscular HGB Conc 33.3 g/dL (30.0-36.0); Mean Corpuscular Hemoglobin 32.5 pg (28.0-34.0); Mean Corpuscular Volume 97.6 fL (80-94); Mean Platelet Volume 10.3 fL (7.4-10.4); Monocytes # 0.5 10^3/uL (0.2-0.9); Monocytes % 6.8 %; Neutrophils # 3.32 10^3/uL (1.8-7.7); Nucleated Red Blood Cells % 0 %; Platelet Count 246 10^3/cmm (130-400); Red Blood Count 5.36 10^6/uL (4.1-5.3); Red Cell Distribution Width 14.6 % (12.1-15.1); White Blood Count 6.6 10^3/uL (4.0-10.0)
[2020-10-12 05:25] LABS: Alanine Aminotransferase 17 U/L (0-41); Albumin Level 3.9 g/dL (3.5-5.2); Alkaline Phosphatase 82 IU/L (40-130); Anion Gap 13.8 (5-19); Aspartate Amino Transferase 30 U/L (0-40); Blood Urea Nitrogen 7 mg/dL (6-20); Calcium 9.4 mg/dL (8.5-10.5); Carbon Dioxide 26 mmol/L (22-29); Chloride 100 mmol/L (98-107); Globulin 2.8 g/dL (1.3-4.6); Glomerular Filtration Rate 121.4 mL/min (90-130); Glucose 76 mg/dL (65-115); Osmolality Calculated 279 mOsm/kg (285-295); Potassium 3.8 mmol/L (3.5-5.1); Sodium 136 mmol/L (136-145); Total Bilirubin 0.6 mg/dL (0.15-1.2); Total Protein 6.7 g/dL (6.6-8.7)
[2020-10-12 05:28] LABS: Chol HDL Ratio 4.58 mg/dL (1.0-5.00); Cholesterol 151 mg/dL (0-200); HDL Cholesterol 33 mg/dL (60-100); LDL Cholesterol Calculated 73 mg/dL (50-129); LDL HDL Ratio 2.21 RATIO (0.00-3.22); Magnesium 2.2 mg/dL (1.7-2.3); Triglycerides 224 mg/dL (0-150)
--- NOTE | 2020-10-12 06:39 | USCV_ITS ---
Miky Edwards Age: 45 Gender: M : 1975 Exam Date: 10/12/2020 06:47 Ordering Phys: Anna Kim MD ([email or web address]) Technologist: Levy Yeung Exam Location: [facility] [place] Indication: NSTEMI BP: 145 / 85 HR: 68 Rhythm: Sinus Technical Quality: Fair MEASUREMENTS (Male / Female) Normal Values 2D ECHO LV Diastolic Diameter PLAX 3.5 cm 4.2 - 5.9 / 3.9 - 5.3 cm LV Systolic Diameter PLAX 2.4 cm IVS Diastolic Thickness 0.9 cm 0.6 - 1.0 / 0.6 - 0.9 cm IVS Systolic Thickness 1.2 cm LVPW Diastolic Thickness 0.9 cm 0.6 - 1.0 / 0.6 - 0.9 cm LVPW Systolic Thickness 1.5 cm LVOT Diameter 2.0 cm LV Ejection Fraction 2D Teich 60.4 % LV Ejection Fraction MOD 2C 60.6 % LV Ejection Fraction 2C AL 60.1 % LA Diameter 3.3 cm LA Width 3.3 cm LA Height 4.2 cm RA Width 3.0 cm RA Height 4.5 cm Aorta at Sinotubular Diameter 2.8 cm M-MODE LV Diastolic Diameter MM 6.0 cm 4.2 - 5.9 / 3.9 - 5.3 cm LV Systolic Diameter MM 4.5 cm LV Ejection Fraction MM Teich 49.3 % IVS Diastolic Thickness MM 0.8 cm 0.6 - 1.0 / 0.6 - 0.9 cm IVS Systolic Thickness MM 1.3 cm LVPW Diastolic Thickness MM 1.2 cm 0.6 - 1.0 / 0.6 - 0.9 cm LVPW Systolic Thickness MM 1.7 cm RV Diastolic Diameter MM 1.4 cm Aortic Annulus Diameter 3.2 cm LA Ao Ratio MM 1.1 MV E Point Septal Separation 1.6 cm DOPPLER AV Peak Velocity 100.0 cm/s LVOT Peak Velocity 69.0 cm/s AV Area Cont Eq vti 2.3 cm squared AV Area Cont Eq pk 2.2 cm squared MV Area PHT 3.3 cm squared Mitral E to A Ratio 1.2 MV E' Velocity 31.0 cm/s Mitral E to MV E' Ratio 7.3 Mitral E to LV E' Lateral Ratio 6.6 Mitral E to LV E' Septal Ratio 8.3 TR Peak Velocity 113.3 cm/s TR Peak Gradient 5.1 mmHg TV Peak E Velocity 58.0 cm/s Right Atrial Pressure 3.0 mmHg Pulmonary Artery Systolic Pressu 8.1 mmHg PV Peak Velocity 88.0 cm/s FINDINGS Left Ventricle Mild diffuse hypokinesia of the septum, anteroseptum and inferolateral wall segments. LV ejection fraction around 40% Right Ventricle The right ventricle is normal in size and function. Right Atrium The right atrium is normal in size. Left Atrium The left atrium is normal in size. Mitral Valve No gross abnormalities noted Aortic Valve No gross abnormalities noted Tricuspid Valve No gross abnormalities noted Pulmonic Valve Pulmonic valve not well visualized. Pericardium Normal pericardium without effusion. Aorta Normal ascending aorta dimension. CONCLUSIONS Mild diffuse hypokinesia of the septum, anteroseptum and inferolateral wall segments. LV ejection fraction around 40%. There is no pericardial effusion. There are no intracardiac masses. Possibly normal chamber sizes. Technically difficult study because of the poor ultrasonic window. Dr Anna Kim MD FACC (Electronically Signed) Final Date: 12 October 2020 07:21 S
--- NOTE | 2020-10-12 07:15 | XACV_ITS ---
Exam Room: [facility] Ht: 180 cm Wt: 100 kg BSA: 2.26 m2 Gender: Male : 1975 Any Known Allergies: Penicillins Exam Priority: Routine Procedure(s): Procedure Description: Diagnostic procedure Diagnostic Cath Status: Urgent Diagnostic Findings * Left main is a medium caliber elongated vessel with some minimal irregularities. No significant stenotic lesions. * The left anterior descending artery is a medium caliber vessel which appears to taper off towards the left ventricular apex. The proximal and the mid segment of the artery was found to have around 20 to 30% irregular diffuse narrowing. The artery gives off a high diagonal branch of equal caliber, appears to be an intermediate artery. This is artery also was found to have mild diffuse irregular narrowing in the proximal segment of around 20% no other significant stenotic lesions were noted. * The left circumflex artery is a medium caliber nondominant vessel which was found to have no significant stenotic lesions. It gives off a small atrial branch proximally which has an ostial around 40% narrowing. * The right * coronary artery is a medium to large caliber dominant vessel which was found to have minimal intimal irregularities distally. The PLV and the PDA branch of the artery also were found to have some minimal intimal irregularities. No significant stenotic lesions. Conclusions 1. No significant disease noted in the Left Main, LAD, Circumflex, or RCA coronary arteries. 2. Mild left ventricular systolic dysfunction. Ejection fraction of 45%. 3. This is a 45-year-old white male with a history of hypertension, smoking abuse and heavy alcohol abuse, presented with prolonged chest pain and elevated troponin T. Echocardiogram revealed diffuse hypokinesia left ventricle with diminished ejection fraction. Clinical features were consistent with a non-ST relation myocardial infarction. In view of the patient's presenting symptoms and the abnormal objective findings, in order to further evaluate his coronary status, a cardiac catheterization was recommended. Patient underwent left heart catheterization with left and right coronary angiogram and LV angiogram today. The findings are as follows.. 4. Mild diffuse coronary artery disease. Diminished left ventricular ejection fraction of 45%. LVEDP of 4 mmHg. Recommendations * Continue current medical management and risk factor modification. Diagnostic RX Recommendation: medical therapy and/or counseling LV EDP: 4 mmHg Ventriculography Ejection Fraction: 45.0 % Left Ventriculography Findings: * The LV gram was performed in the RUIZ position. The LV cavity appears to be mildly dilated. There is diffuse hypokinesia of the left ventricle. The ejection fraction was around 45%. No significant mitral valve prolapse or mitral regurgitation. The LVEDP was 4 mmHg.. Pressures Phase:Rest AO : 114 / 91 ( 103 ) @ 2:08:00 AM 106 / 47 ( 78 ) @ 2:21:00 AM 108 / 36 ( 66 ) @ 2:21:00 AM 108 / 65 ( 84 ) @ 2:21:00 AM LV : 108 / 15 / @ 2:19:00 AM 114 / -15 / @ 2:19:00 AM 123 / -9 / @ 2:21:00 AM 117 / -10 / @ 2:21:00 AM Valves Phase:DefaultPhase AV : 10.0 @ 8:42:38 AM AV Mean Gradient: 12.0 @ 8:42:38 AM Clinical Evaluation EBL: 5mL-10mL Procedural Details Procedure Consent Obtained. Pre-Procedure Time Out. Identified patient by full name and date of as verbalized by the patient/guarantor. Does the consent match the physician's order: Yes. Accurate & Complete Informed Consent: Yes. Inpatient/Outpatient History & Physical on Chart: Yes. If H&P is completed, is and addenduem needed: No; If yes, is the addendum complete: N/A. Visualize and Verify Site with Patient/Guarantor: N/A. Relevant Radiology Images available: N/A. Pre-op teaching completed and patient verbalized understanding. The risks, benefits, and alternatives of sedation and/or procedure were discussed by physician. The patient agrees to continue. Procedure started. 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 Chest Pain Symptom Assessment: Typical Angina Symptoms. Cardiovascular Instability: No. Correct patient, site and procedure confirmed by cath team. PERRLA. Strong, equal hand director foundation bilaterally. Lungs clear x 5 lobes. IV Site on Arrival: 20 gauge in the left anticubital. IV Fluids: 0.9% NaCl at KVO. 0 mL infused prior to dairy laboratory technician. Pre Procedural Pulses: bilateral dorsalis pedis was 3+. Pre Procedural Pulses: bilateral posterior tibial was 3+. Pre Procedural Pulses: bilateral radial was 3+. Oxygen started at 2liters/min via nasal canula. Physician arrived. Equipment: 6F - Radial. Cardiac Cath Pack. ACIST Manifold Kit Model BT 2000. Heparinized Saline (2 units/mL), 1000 mL bag. right radial was prepped with chloroprep then draped in the usual sterile fashion. bilateral groins was prepped with chloroprep then draped in the usual sterile fashion. Baseline sample Acquired. HR: 71 BPM. Physician scrubbed in. Immediate Pre-Procedure Time Out. Correct Patient: Yes; Correct Procedure: Yes; Correct Site: Yes; Correct Patient Position: Yes; Correct Supplies: Yes; Dried Flammable Prep: Yes; Blood Products Available: N/A;. Lidocaine 1% infiltrated to the right radial. Arterial access obtained. A 5 nigerian TIG catheter in over wire. Catheter out. A 5 nigerian JR4 catheter in over wire. Catheter out. Unable to advance Catheter using radial approach. Physician moving to femoral approach. A TR Band was successful obtaining hemostatsis at the Right Radial artery insertion site. TR band placed. Hemostasis obtained. Lidocaine 1% infiltrated to the right groin. Arterial access obtained with micropuncture set. A 5 nigerian JL4 catheter in over wire. Multiple views taken of left coronary artery. Catheter out. A 5 nigerian JR4 catheter in over wire. Multiple views taken of right coronary artery. Catheter out. A 5 nigerian Angled Pig catheter in over wire. EDP Sample taken: LV 108/15,24; HR: 72 BPM; SpO2: 99%. EDP Sample taken: LV 114/-16,4; HR: 68 BPM; SpO2: 99%. LV gram performed in RUIZ @ 10 mL/second for a total of 30 mL. EDP Sample taken: LV 123/-10,7; HR: 70 BPM; SpO2: 99%. Pullback taken: LV 117/-11,6; AO 106/47(78); Mean: 12mmHg, Peak to Peak: 10mmHg, SEP: 22sec/min; HR: 69 BPM; SpO2: 99%. Catheter out. A Manual Compression was successful obtaining hemostatsis at the Right Femoral artery insertion site. Sheath(s) removed and manual pressure held until hemostasis was achieved. Sterile 4x4 and Op-site applied to the puncture site. No oozing or hematoma noted. Post sheath removal instructions were given and the patient verbalized understanding. Post Procedure: Pulses reassessed and unchanged. PERRLA. Strong, equal hand director foundation bilaterally. No VTE prophylaxis required. Medication's Wasted: Lidocaine 1% = 4 mL. Medication's Wasted: Nitro = 49.8 mg. Medication's Wasted: Heparin = 4500 units. Total IV fluids: 60 mL. Contrast type used: Omnipaque 300 mgI/mL, 500 mL bottle. Post-op diagnosis: mild CAD, cardiomyopathy. Complications: none. Estimated blood loss: 5mL-10mL. Procedure completed. Patient transferred by bed to 1st floor. Vital chart was stopped. Access Site Site: Right Radial artery Sheath Size: 6 Fr Hemostasis Method: TR Band Hemostasis Success: Successful Site: Right Femoral artery Sheath Size: 6 Fr Hemostasis Method: Manual Compression Hemostasis Success: Successful Procedure Medications Start: 7:33 AM Stop: 7:33 AM Medication: Versed Amount: 1 mg Route: I.V. Start: 7:33 AM Stop: 7:33 AM Medication: Fentanyl Amount: 50 mcg Route: I.V. Start: 7:43 AM Stop: 7:43 AM Medication: Versed Amount: 1 mg Route: I.V. Start: 7:43 AM Stop: 7:43 AM Medication: Fentanyl Amount: 50 mcg Route: I.V. Start: 7:45 AM Stop: 7:45 AM Medication: Verapamil Amount: 5 mg Route: I.A. Start: 7:45 AM Stop: 7:45 AM Medication: Nitrogylcerin Amount: 200 mcg Route: I.A. Start: 7:47 AM Stop: 7:47 AM Medication: Versed Amount: 1 mg Route: I.V. Start: 7:47 AM Stop: 7:47 AM Medication: Fentanyl Amount: 50 mcg Route: I.V. Start: 7:59 AM Stop: 7:59 AM Medication: Versed Amount: 1 mg Route: I.V. Start: 7:59 AM Stop: 7:59 AM Medication: Fentanyl Amount: 50 mcg Route: I.V. Start: 8:10 AM Stop: 8:10 AM Medication: Heparin Amount: 1500 units Route: I.V. Start: 8:12 AM Stop: 8:12 AM Medication: Versed Amount: 1 mg Route: I.V. Start: 8:12 AM Stop: 8:12 AM Medication: Fentanyl Amount: 50 mcg Route: I.V. Start: 8:20 AM Stop: 8:20 AM Medication: 0.9% Saline Amount: 250 ml Route: I.V. bolus I, the attending physician, have reviewed and verified all procedure medications. Yes, all medications given per verbal order History/Risk Factors Hypertension: Yes Dyslipidemia: No Peripheral Arterial Disease (PAD): No Myocardial Infarction (MS): No Obesity: No Renal Disease: No Tobacco Use: Current/Recent(w/in 1 year) Prior Interventions PCI: No CABG: No Valve Surgery: No Report Signatures Finalized by Dr Anna Kim MD [facility] on 10/12/2020 08:40 PM
--- NOTE | 2020-10-12 07:26 | P.PN_ITS ---
Subjective Subjective: Interval history: Patient is feeling okay. Continues to have some discomfort in the chest. Scheduled for cardiac catheterization today. Medications: Reviewed: Yes Medication Review Details: Laboratory Last Values Current Medications Acetaminophen (Acetaminophen 325 Mg Tablet) 650 mg PO Q6H PRN PRN Reason: Mild/Mod Pain Or Temp >/= 101 Aspirin (Aspirin 81 Mg Ec Tablet) 81 mg PO DAILY [facility] Atorvastatin Calcium (Atorvastatin 40 Mg Tablet) 80 mg PO BEDTIME [facility] Last Admin: 10/11/20 20:51 Dose: 80 mg Documented by: Enoxaparin Sodium (Enoxaparin 100 Mg/Ml Syringe) 100 mg SUBCUT Q12H [facility] Last Admin: 10/12/20 00:12 Dose: 100 mg Documented by: Folic Acid (Folic Acid 1 Mg Tablet) 1 mg PO DAILY [facility] Lorazepam (Lorazepam 2 Mg Tablet) 2 mg PO PROTOCOL PRN; Protocol PRN Reason: WITHDRAWAL Metoprolol Tartrate (Metoprolol Tartrate 25 Mg Tablet) 25 mg PO BID@0900,2100 [facility] Last Admin: 10/11/20 20:51 Dose: 25 mg Documented by: Morphine Sulfate (Morphine 4 Mg/Ml Sdv 1 Ml) 2 mg IVP Q4H PRN PRN Reason: SEVERE PAIN Morphine Sulfate (Morphine 4 Mg/Ml Sdv 1 Ml) 2 mg IVP Q4H PRN PRN Reason: SEVERE PAIN Multivitamins Therapeutic (Multivitamin Therapeutic Tablet) 1 tab PO DAILY [facility] Ondansetron HCl (Ondansetron 2 Mg/Ml Sdv 2 Ml) 4 mg IVP Q8H PRN PRN Reason: vomiting, or N/V if npo Ondansetron HCl (Ondansetron 2 Mg/Ml Sdv 2 Ml) 4 mg IVP Q6H PRN PRN Reason: NAUSEA AND VOMITING Thiamine Mononitrate (Thiamine 100 Mg Tablet) 100 mg PO DAILY [facility] Vitals/I&O/Wt Last Vital Signs Temp 97.6 F 10/12/20 07:12 Pulse 68 10/12/20 07:12 Resp 16 10/12/20 07:12 BP 136/91 10/12/20 07:12 Pulse Ox 98 10/12/20 07:12 10/11/20 10/12/20 10/12/20 22:59 06:59 14:59 Intake Total 240 / 240 480 / 720 Output Total 400 / 400 500 / 900 350 / 350 Balance -160 / -160 -20 / -180 -350 / -350 Weight last 48 hrs Weight 220 lb Physical Exam Narrative: EXAM NARRATIVE: GENERAL: The patient is alert and oriented times three. Not in any acute distress. Unkempt HEENT: No significant pallor, icterus or lymphadenopathy. The pupils are reactant to light. Oral cavity: There are no mucous membrane lesions. NECK: Trachea appears to be central. No masses noted. No JVD or thyromegaly appreciated. No carotid bruit. RESPIRATORY: Chest is symmetrical. No intercostals muscle retraction or any accessory muscle activation. There is no chest wall tenderness. Breath sounds are heard bilaterally. No rales or rhonchi heard. No evidence of any consolidation. BREASTS: Deferred. HEART: The PMI could not be palpated. No other palpable precordial events. First and second heart sounds are normal. No S3 or S4. No significant murmurs. No pericardial rub ABDOMEN: No vessel pulsations or distention. No tenderness. No organomegaly appreciated. No abdominal bruit. Bowel sounds are normally heard. : Deferred. RECTAL: Deferred. LYMPHATIC: No lymphadenopathy noted in the neck or groin. EXTREMITIES: No edema or cyanosis. No clubbing. Peripheral pulses are palpable in fairly good volume and amplitude. MUSCULOSKELETAL: No acute joint deformities or swelling SKIN: There are no significant scars or skin rash noted. NEUROPSYCHIATRIC: The patient is alert and oriented x3. Appears to be in a good mood. The higher functions are grossly within normal limits. No tremors or rigidity noted. Data : 10/12/20 03:46 10/12/20 03:46 Other Labs: Laboratory Last Values WBC 6.6 10^3/uL (4.0-10.0) 10/12/20 03:46 RBC 5.36 10^6/uL (4.1-5.3) H 10/12/20 03:46 Hgb 17.4 g/dL (11.7-16.6) H 10/12/20 03:46 Hct 52.3 % (42.0-52.0) H 10/12/20 03:46 MCV 97.6 fL (80-94) H 10/12/20 03:46 MCH 32.5 pg (28.0-34.0) 10/12/20 03:46 MCHC 33.3 g/dL (30.0-36.0) 10/12/20 03:46 RDW 14.6 % (12.1-15.1) 10/12/20 03:46 Plt Count 246 10^3/cmm (130-400) 10/12/20 03:46 MPV 10.3 fL (7.4-10.4) 10/12/20 03:46 Neut % (Auto) 50.0 % 10/12/20 03:46 Lymph % (Auto) 39.4 % 10/12/20 03:46 [place] % (Auto) 6.8 % 10/12/20 03:46 Eos % (Auto) 2.9 % 10/12/20 03:46 Baso % (Auto) 0.6 % 10/12/20 03:46 Neut # (Auto) 3.32 10^3/uL (1.8-7.7) 10/12/20 03:46 Lymph # (Auto) 2.6 10^3/uL (0.8-4.8) 10/12/20 03:46 [place] # (Auto) 0.5 10^3/uL (0.2-0.9) 10/12/20 03:46 Eos # (Auto) 0.2 10^3/uL (0.0-0.8) 10/12/20 03:46 Baso # (Auto) 0.0 10^3/uL (0.0-0.1) 10/12/20 03:46 Nucleated RBC % (auto) 0 % 10/12/20 03:46 Nucleated RBCs # 0.0 /100WBC 10/12/20 03:46 Sodium 136 mmol/L (136-145) 10/12/20 03:46 Potassium 3.8 mmol/L (3.5-5.1) 10/12/20 03:46 Chloride 100 mmol/L (98-107) 10/12/20 03:46 Carbon Dioxide 26 mmol/L (22-29) 10/12/20 03:46 Anion Gap 13.8 (5-19) 10/12/20 03:46 BUN 7 mg/dL (6-20) 10/12/20 03:46 Creatinine 0.7 mg/dL (0.7-1.2) 10/12/20 03:46 GFR Calculation 121.4 mL/min (90-130) 10/12/20 03:46 Glucose 76 mg/dL (65-115) 10/12/20 03:46 Calculated Osmolality 279 mOsm/kg (285-295) L 10/12/20 03:46 Calcium 9.4 mg/dL (8.5-10.5) 10/12/20 03:46 Magnesium 2.2 mg/dL (1.7-2.3) 10/12/20 03:46 Total Bilirubin 0.6 mg/dL (0.15-1.2) 10/12/20 03:46 AST 30 U/L (0-40) 10/12/20 03:46 ALT 17 U/L (0-41) 10/12/20 03:46 Alkaline Phosphatase 82 IU/L (40-130) 10/12/20 03:46 Troponin T Baseline 305 ng/L (0-15) H* 10/11/20 10:30 Troponin T 120 Minute 416.6 ng/L (0-15) H 10/11/20 11:45 Delta Troponin T 111.6 ABS# (0-10) H* 10/11/20 11:45 Troponin T Hi Sens 6Hr 292.3 ng/L (0-15) H 10/11/20 16:19 Troponin T Hi Sens 6Hr Delta -12.7 ng/L (0-12) L 10/11/20 16:19 Total Protein 6.7 g/dL (6.6-8.7) 10/12/20 03:46 Albumin 3.9 g/dL (3.5-5.2) 10/12/20 03:46 Globulin 2.8 g/dL (1.3-4.6) 10/12/20 03:46 Triglycerides 224 mg/dL (0-150) H 10/12/20 03:46 Cholesterol 151 mg/dL (0-200) 10/12/20 03:46 LDL Cholesterol, Calc 73 mg/dL (50-129) 10/12/20 03:46 HDL Cholesterol 33 mg/dL (60-100) L 10/12/20 03:46 LDL/HDL Ratio 2.21 RATIO (0.00-3.22) 10/12/20 03:46 Cholesterol/HDL Ratio 4.58 mg/dL (1.0-5.00) 10/12/20 03:46 Lipase 32 U/L (13-60) 10/11/20 10:30 A&P Assessment and plan (1) Acute non-ST elevation myocardial infarction (NSTEMI): Continue on the current medications. Cardiac catheterization today. Based on the angiogram findings, further recommendations will be made (2) Benign essential HTN: The blood pressure seems to be getting under control. Continue optimizing the medication. Status: Acute (3) Alcohol dependence: Patient is strongly advised to quit drinking. Currently has no withdrawal symptoms. Status: Chronic Qualifiers: Complication of substance-induced condition: uncomplicated Substance use status: with intoxication Qualified Code(s): F10.220 - Alcohol dependence with intoxication, uncomplicated (4) Tobacco dependence due to cigarettes: Patient strongly advised to quit smoking. Status: Chronic Additional A&P Information Other problems are History of major depressive illness Possible COPD The risk of bleeding, hematoma, vascular injury, myocardial infarction, CVA, renal failure and other concomitant complications were explained in detail. Patient understood this well and consented to proceed Based on the cardiac catheterization findings, further recommendations will be made. Attestations Medical Necessity Statement*: Disposition as per the primary Coding Level of Care Code Acute Cell Biologist for Liv Crisostomo Diagnoses Acute non-ST elevation myocardial infarction (NSTEMI) I21.4 Benign essential HTN I10 Alcohol dependence F10.220 Complication of substance-induced condition: uncomplicated Substance use status: with intoxication Tobacco dependence due to cigarettes F17.210
--- NOTE | 2020-10-12 07:27 | W.PM.OPSUD ---
Surgery/Procedure H&P Update DATE OF PROCEDURE: October 12, 2020 DATE H&P PERFORMED: 10/11/20 H&P UPDATE INFORMATION: I have reviewed H&P completed within last 30 days, I have examined patient prior to procedure and No changes to prior documentation PREOP DIAGNOSIS: Non-ST elevation myocardial infarction PRIMARY INDICATION FOR PROCEDURE: ST relation myocardial infarction/cardiomyopathy PATIENT REASSESSED PRIOR TO SEDATION, WITH NO CHANGE NOTED: Yes PHYSICAL EXAM: alert, oriented x 3, clear to auscultation bilaterally and regular rate & rhythm AIRWAY EVAL/ANESTHESIA PLAN: normal airway, see other exam findings, ASA III, Monitored Anesthesia, Local Anesthesia and Risks, benefits & alternatives of sedation and/or procedure discussed
--- NOTE | 2020-10-12 08:36 | PC.CHAP ---
Pastoral Care Encounter/Spiritual Assessment Type of Contact [] Declined justice court judge visit [] Patient/Family/Request visit [] Outpatient visit [] Follow-up visit [] Physician referral [] Code/Alert [] Routine visit [] Staff referral [] Actively dying [] Patient sleeping [] Family support [] [x] Out of room [] Palliative care [] [] Receiving care in room [] Pre-surgical visit [] Trauma [] Long length of stay [] ICU visit [] Other: Relational/Emotional Strength [] Patient feels connected with others/family/visitors/staff [] Distress [] Loneliness/isolation [] Abandonment Spirituality of Patient [] Person of [place] [] Attends Gnosticism of their [place]gor[place] [] Believes in Prayer [] Reads Bible or Christian materials [] There are Spiritual issues to be addressed Employee Benefits Administrator Interventions [x] Prayer [] Active listening [] Non-anxious presence [] Spiritual/emotional support [] Crisis/trauma care [] Spiritual counseling [] Bereavement support [] Provided bereavement packet [] Provided Bible/devotional materials [] Provided toy/stuffed animal, coloring book to patient or family member [] Provided Communion [] Anointing/Gunlock [] Salvation [x] Completed spiritual assessment [] Other: Impact on Illness or Injury [] Angry [] Fearful [] Anxious [] Often cries [] Exhaustion [] Unable to work [] Unable to attend anglican [] Unable to walk/stand [] Unable to read [] Unable to drive [] Unable to eat/drink [] Unable to sleep [] Unable to be with family [] Patient intubated [] Other: Summary Time spent with patient
[2020-10-12] MEDS: multivitamin therapeutic Tablet 1 TAB PO (09:03)
[2020-10-12] MEDS: folic acid 1 mg Tablet PO (09:03)
[2020-10-12] MEDS: thiamine 100 mg Tablet PO (09:03)
[2020-10-12] MEDS: aspirin 81 mg EC Tablet PO (09:03)
[2020-10-12] MEDS: metoprolol tartrate 25 mg Tablet PO (09:03)
[2020-10-12] MEDS: clopidogrel 75 mg Tablet PO (09:03)
--- NOTE | 2020-10-12 10:41 | P.DS_ITS ---
Discharge Providers Date of Admission: 10/11/20 11:17 Date of Discharge: October 12, 2020 Attending Provider at Admission: Judah Jimenes Attending Provider at Discharge: Judah Jimenes Diagnoses at Discharge Discharge Diagnosis (1) Acute non-ST elevation myocardial infarction (NSTEMI): Status: Acute (2) Benign essential HTN: Status: Acute (3) Alcohol dependence: Status: Chronic Qualifiers: Substance use status: with intoxication Complication of substance- induced condition: uncomplicated Qualified Code(s): F10.220 - Alcohol dependence with intoxication, uncomplicated (4) Tobacco dependence due to cigarettes: Status: Chronic Reason for Visit Reason for Visit: CHEST PAIN/ ARM PAIN Hospital Course Hospital Course 45-year-old male with past medical history of hypertension, tobacco and alcohol abuse, possible arrhythmias in the past who is presenting with chest pain. Has elevated troponin. EKG and chest x-ray are unremarkable. Acute coronary syndrome/non-ST elevation [place]. Underwent cardiac catheterization with Dr. Kim. Has mild coronary artery disease. No PCI or stent placement was done. Was cleared for discharge. Medical management was recommended. Will be discharged on dual antiplatelet therapy, beta-sandor, JESSE inhibitor, statin. Will follow up with Dr. Kim. EF of 40%. 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 No evidence of acute CHF exacerbation. Discussed with the patient. He will need close follow-up with Dr. Kim. Hypertension. Currently well controlled. Continue current management. Alcohol abuse. Counseling is provided. No evidence of withdrawal. The patient has decided to quit drinking alcohol. He will be discharged on Librium taper. He will be discharged on vitamin replacement therapy. He was instructed not to drive while he is taking Librium. He was instructed not to take Librium and drink alcohol at the same time. He verbalized understanding and agreement. Tobacco abuse. The patient could not commit to quitting smoking. However he promised to cut down on the amount he smokes. He is promising to consider quitting in the near future. Currently he is doing well. Denies any active complaints. Eager to go home. He is instructed to come back to emergency room if he develops any new or similar complaints. Physical Exam Narrative: EXAM NARRATIVE: The patient is awake alert and oriented. No acute distress. Mood and affect are appropriate. Responses are adequate. Skin is warm and dry. Moist mucous memories. Eyes PERRLA, extraocular muscles are intact. Normal speech. Neck supple. No JVD Lungs clear to auscultation bilaterally. No wheezes or crackles Heart S1, S2, regular Abdomen soft, nontender, bowel sounds are present Extremities no edema cyanosis or calf tenderness bilaterally. No tremors. Neuro exam is nonfocal. Discharge Data Data Completed and Pending: Completed Studies During Hospitalization Category Date Time Status XR chest 1V lizeth ble [id number] Stat Exams 10/11/20 09:16 Completed XR chest 2V* [id number] Stat Exams 10/11/20 10:36 Completed CV echo complete* [id number] Routine Ultrasound 10/12/20 06:39 Completed Pending at discharge Category Date Time Status MAP EDITOR request for service Routin e Exams 10/12/20 07:15 Taken Labs from last 24 hours 10/12/20 10/12/20 10/12/20 03:46 03:46 03:46 WBC RBC Hgb Hct MCV MCH MCHC RDW Plt Count MPV Neut % (Auto) Lymph % (Auto) [place] % (Auto) Eos % (Auto) Baso % (Auto) Neut # (Auto) Lymph # (Auto) [place] # (Auto) Eos # (Auto) Baso # (Auto) Nucleated RBC % (a uto) Nucleated RBCs # Sodium 136 Potassium 3.8 Chloride 100 Carbon Dioxide 26 Anion Gap 13.8 BUN 7 Creatinine 0.7 GFR Calculation 121.4 Glucose 76 Calculated Osmolal ity 279 L Calcium 9.4 Magnesium 2.2 Total Bilirubin 0.6 AST 30 ALT 17 Alkaline Phosphata se 82 Troponin T Baselin e Troponin T 120 Min [place] Delta Troponin T Troponin T Hi Sens 6Hr Troponin T Hi Sens 6Hr Delta Total Protein 6.7 Albumin 3.9 Globulin 2.8 Triglycerides 224 H Cholesterol 151 LDL Cholesterol, C alc 73 HDL Cholesterol 33 L LDL/HDL Ratio 2.21 Cholesterol/HDL Ra nikia 4.58 Lipase 10/12/20 10/11/20 10/11/20 03:46 16:19 11:45 WBC 6.6 RBC 5.36 H Hgb 17.4 H Hct 52.3 H MCV 97.6 H MCH 32.5 MCHC 33.3 RDW 14.6 Plt Count 246 MPV 10.3 Neut % (Auto) 50.0 Lymph % (Auto) 39.4 [place] % (Auto) 6.8 Eos % (Auto) 2.9 Baso % (Auto) 0.6 Neut # (Auto) 3.32 Lymph # (Auto) 2.6 [place] # (Auto) 0.5 Eos # (Auto) 0.2 Baso # (Auto) 0.0 Nucleated RBC % (a uto) 0 Nucleated RBCs # 0.0 Sodium Potassium Chloride Carbon Dioxide Anion Gap BUN Creatinine GFR Calculation Glucose Calculated Osmolal ity Calcium Magnesium Total Bilirubin AST ALT Alkaline Phosphata se Troponin T Baselin e Troponin T 120 Min [place] 416.6 H Delta Troponin T 111.6 H* Troponin T Hi Sens 6Hr 292.3 H Troponin T Hi Sens 6Hr Delta -12.7 L Total Protein Albumin Globulin Triglycerides Cholesterol LDL Cholesterol, C alc HDL Cholesterol LDL/HDL Ratio Cholesterol/HDL Ra nikia Lipase 10/11/20 10/11/20 10/11/20 10:30 10:30 10:30 WBC RBC Hgb Hct MCV MCH MCHC RDW Plt Count MPV Neut % (Auto) Lymph % (Auto) [place] % (Auto) Eos % (Auto) Baso % (Auto) Neut # (Auto) Lymph # (Auto) [place] # (Auto) Eos # (Auto) Baso # (Auto) Nucleated RBC % (a uto) Nucleated RBCs # Sodium 139 Potassium 4.9 Chloride 102 Carbon Dioxide 28 Anion Gap 13.9 BUN 8 Creatinine 0.8 GFR Calculation 104.1 Glucose 75 Calculated Osmolal ity 285 Calcium 9.5 Magnesium Total Bilirubin 0.3 AST 21 ALT 18 Alkaline Phosphata se 86 Troponin T Baselin e 305 H* Troponin T 120 Min [place] Delta Troponin T Troponin T Hi Sens 6Hr Troponin T Hi Sens 6Hr Delta Total Protein 6.6 Albumin 4.3 Globulin 2.3 Triglycerides Cholesterol LDL Cholesterol, C alc HDL Cholesterol LDL/HDL Ratio Cholesterol/HDL Ra nikia Lipase 32 Vitals: Last Vital Signs Temp 97.6 F 10/12/20 07:12 Pulse 61 10/12/20 09:30 Resp 14 10/12/20 09:30 BP 128/89 10/12/20 09:30 Pulse Ox 97 10/12/20 09:30 Discharge Plan Discharge Patient Disposition: Home Condition: Stable Prescriptions: New clopidogrel 75 mg Tablet 75 mg PO DAILY Qty: 90 RF: 0 aspirin 81 mg Tablet,Delayed Release (Dr/Ec) 81 mg PO DAILY Qty: 90 RF: 0 folic acid 1 mg Tablet 1 mg PO DAILY Qty: 30 RF: 0 metoprolol tartrate 25 mg Tablet 25 mg PO BID@0900,2100 Qty: 60 RF: 0 Vitamin B-1 (mononitrate) 100 mg Tablet 100 mg PO DAILY Qty: 90 RF: 0 Thera 400 mcg Tablet 1 tab PO DAILY Qty: 30 RF: 0 chlordiazepoxide HCl 25 mg capsule 25 mg PO TID Qty: 18 RF: 0 Lipitor 40 mg tablet 40 mg PO DAILY Qty: 30 RF: 0 Continued venlafaxine 25 mg tablet 25 mg PO BID@06,20 RF: 0 lisinopril 5 mg tablet 5 mg PO DAILY@06 RF: 0 Discontinued metoprolol tartrate 25 mg tablet See Rx Instructions .ROUTE .COMPLEX Qty: 60 RF: 3 Discharge Orders: Discharge Order (Routine); Ordered 10/12/20 Ordered By: Judah Jimenes Other Ambulatory Orders: Comprehensive Metabolic Panel (Routine) Timeframe: 2 Weeks Facility: [facility] - Location: Lab - Main Lab Ordered By: Judah Jimenes Referrals: Anna Kim MD [Physician] - 2 weeks Rebeka Hodge NP [Referring] - 1 week Discharge Diet: Cardiac Discharge Activity: Resume usual activity Patient Instructions: Left Heart Catheterization (DC), Abuse of Alcohol (DC), Alcohol Withdrawal (DC), Post Angiogram Home Care Instructions Activity Restrictions/Additional Instructions: Please do not drive while taking Librium. Please come back to emergency room if develop any new chest pain, shortness of breath, weakness, dizziness, or lightheadedness, palpitations, tremors, anxiety, seizures, or any other new complaints. Discharge Attestations Time Spent in Discharge Care*: less than 30 min Quality Metrics Clinical Quality Measures During this hospital stay, did patient experience: AMI Clinical Trial Participant: No Contraindication to aspirin (AMI): Aspirin given Contraindication to statin: Statin prescribed Coding Level of Care Code Acute Guest Services Manager for Liv Fwcarrie Diagnoses Acute non-ST elevation myocardial infarction (NSTEMI) I21.4 Benign essential HTN I10 Alcohol dependence F10.220 Substance use status: with intoxication Complication of substance-induced condition: uncomplicated Tobacco dependence due to cigarettes F17.210
--- NOTE | 2020-10-12 14:48 | PC.NURSE ---
PATIENT AMBULATED APPROXIMATELY 40 FEET WITH NO COMPLAINTS OF DIZZINESS AND NO ISSUES WITH HIS FEMORAL SHEATH SITE. NO HEMATOMA NOTED.
--- NOTE | 2020-10-12 17:49 | PC.NURSE ---
PATIENT HAS BEEN DISCHARGED SINCE 1445 THIS SHIFT. PATIENT'S RIDE ARRIVED AT 1745.
--- NOTE | 2020-10-13 17:21 | PC.RESP ---
Smoking Cessation information sent to patient.
== END 2020-10-12 17:50 | disposition home or self-care (01) ==
LOC: ER 14:01 → CSU 17:01
PROVIDERS: Internal Medicine Cardiovascular Disease; Admitting Provider Internal Medicine; Emergency Provider Family Medicine; Visit Provider Internal Medicine
DX: I21.4 Non-ST elevation (NSTEMI) myocardial infarction (principal); I10 Essential (primary) hypertension; F17.210 Nicotine dependence, cigarettes, uncomplicated; F10.20 Alcohol dependence, uncomplicated; F10.220 Alcohol dependence with intoxication, uncomplicated
CPT/HCPCS: 12345; 36415; 71045; 71046; 80053; 80061; 83690; 83735; 84484; 85025; 93005; 93306; 93452; 96372; 99282; 99285; C1769; C1887; C1894; G0378; J1644; J1650; J2250; J3010; J3411; J3490; J7030; Q9967

== ENCOUNTER → 2020-10-19 16:27 | Outpatient (BNVA) | payer MEDICAID, SELFPAY | PROVIDERS: PCP Family Medicine; Visit Provider Nurse Practitioner Family | DX: I25.119 Atherosclerotic heart disease of native coronary artery with unspecified angina pectoris (principal) | CPT/HCPCS: 80048 ==

== ENCOUNTER 2020-10-30 05:22 | Emergency (ER) | payer MEDICAID, SELFPAY ==
[2020-10-30] VITALS (8 sets, daily range): BP systolic 130–149; BP diastolic 87–104; PULSE 61–76; RESP 15–18; TEMP 36.2; O2SAT 96–99; BMI 30.1
--- NOTE | 2020-10-30 05:39 | XRR_ITS ---
PROCEDURE INFORMATION: Exam: XR Chest, 1 View Exam date and time: 10/30/2020 5:57 AM Age: 45 years old Clinical indication: Pain; Prior surgery; Surgery type: Cardiac catheterization. [place] cash. ; Patient HX: Central chest pressure this a. M. ; Additional info: Cp TECHNIQUE: Imaging protocol: XR of the chest Views: 1 view. COMPARISON: CR XR chest 2V* [id number] 10/11/2020 10:52 AM FINDINGS: Lungs: There are bilateral increased interstitial markings seen in the lower hemithoraces, findings that could represent atelectasis although a bilateral interstitial pneumonitis cannot be excluded. Pleural space: Unremarkable. No pleural effusion. No pneumothorax. Heart/Mediastinum: Unremarkable. No cardiomegaly. Bones/joints: [place] rods are seen within the thoracic spine. XR/XR chest 1V portable [id number] IMPRESSION: Increased interstitial markings in the lower hemithoraces could represent atelectasis although bilateral interstitial pneumonitis cannot be excluded.
--- NOTE | 2020-10-30 05:49 | W.ED.CHESTPA ---
Documented by User: Parviz Palm, 10/30/20 05:59 HPI - Chest Pain General: Chief Complaint: Chest Pain Stated Complaint: chest pain Time Seen by Provider: 10/30/20 05:39 History of Present Illness: HPI narrative: 45-year-old male with a history of hypertension and alcoholic cardiomyopathy presents with chest discomfort this morning. He notes that he was awake for about 15 minutes, and then began to feel a right-sided chest discomfort. It radiated into his right and left forearm. He was mildly short of breath. He was not diaphoretic or nauseated. He was urged by his family to come in for evaluation. Notes a chronic cough. No fever. He took 1 81 mg aspirin and metoprolol at home. His pain is improved now, but still mildly there MD complaint: chest pain Pertinent past history: other Onset (ago): minute(s) Timing of current episode: still present (Significantly improved) Prior episodes: Yes Onset: during rest Pain location: right chest Pain radiation: right arm and left arm Severity: moderate Quality: tightness and heaviness Relieving factors: other Associated symptoms: Reports dyspnea; Deny fever(s), nausea, syncope or vomiting Review of Systems Const: Denies: fever(s) Eyes: Denies: change in vision ENMT: Denies: odynophagia, dental pain, change in hearing or sinus pain Card: Denies: syncope Resp: Reports: dyspnea GI: Denies: nausea or vomiting : Denies: difficulty urinating or hematuria Musc: Denies: neck pain, back pain, joint redness or joint warmth Skin/Breast: Denies: rash, pruritus or erythema Neuro: Denies: headache(s), dizziness or vertigo Psych: Denies: anxiety PFSH ED PFSH: Medical History Acute non-ST elevation myocardial infarction (NSTEMI) Alcohol dependence Benign essential HTN Coronary artery disease Elevated troponin Fatigue Heart disease High blood pressure Non-ST elevation [place] (NSTEMI) Smoking Ventricular arrhythmia Surgical History History of cholecystectomy Previous back surgery Family History Other CAD (coronary artery disease) Cancer Hypertension Social History Smoking and tobacco status: current every day smoker cigarettes Packs smoked per day: 1.5 Alcohol intake: current Alcohol intake frequency: 3 or more drinks per day Alcohol type: beer Household members: spouse and children Marital status: Number of children: 2 Highest education level completed: 8th Grade service: No Current occupational status: unemployed Pets and animals: Yes Current gender identity: Male Physical Exam Const: GENERAL APPEARANCE: well developed ORIENTATION/CONSCIOUSNESS: Yes oriented to person, Yes oriented to place and Yes oriented to time HENMT: COMMON NORMALS: normocephalic, external ears normal and Normal external nose present HEAD & SCALP: normocephalic FACE & SINUS: normal facial exam NOSE: Normal external nose present and No nasal discharge present EXTERNAL EAR: Yes external ears normal Eye: COMMON NORMALS: Equal, round and reactive pupils present, EOMs intact bilaterally and conjunctivae normal EYELID: eyelids normal CONJUNCTIVA: Yes conjunctivae normal PUPIL: Yes Equal, round and reactive pupils present Neck/C-Spine: GENERAL: No tracheal deviation Chest: COMMONS NORMALS: normal inspection of the chest CHEST: Yes tenderness Resp: COMMON NORMALS: clear to auscultation bilaterally EFFORT & INSPECTION: No tachypneic, No respiratory distress, No retractions, No uses accessory muscles and No tracheal deviation AUSCULTATION: clear to auscultation bilaterally, no rhonchi, no wheezes and lung sounds not diminished Cardio: COMMON NORMALS: regular rate and regular rhythm RATE: regular rate RHYTHM: regular rhythm HEART SOUNDS: no murmurs PERIPHERAL PULSES: radial pulses present GI: INSPECTION: No abdominal distension AUSCULTATION: No Hyperactive bowel sounds present and No Hypoactive bowel sounds present PALPATION: No Guarding due to palpation present (GI) and No Rigid due to palpation PERCUSSION: no dullness to percussion and no tympanic to percussion Neuro: SENSORIUM/ORIENTATION: Yes oriented to person, Yes oriented to place and Yes oriented to time Psych: COMMON NORMALS: mental status grossly normal Skin: COMMON NORMALS: no rashes or lesions noted GENERAL SKIN EXAM: no rashes or lesions noted Course Vital Signs: Vital signs: Vital Signs Temperature 97.2 F L 10/30/20 05:26 Pulse Rate 68 10/30/20 12:51 Respiratory Rate 18 10/30/20 12:51 Blood Pressure 144/104 10/30/20 12:51 Pulse Oximetry 99 10/30/20 12:51 MDM - Chest Pain MDM Narrative: Medical decision making narrative: 45-year-old male presenting with chest pain. He was admitted for observation on 11 October, and ended up having an angiogram that was free of significant coronary disease. Echocardiogram showed an EF of 40%. This is likely alcoholic cardiomyopathy. He presents with chest discomfort. It is improved now but still there. It is somewhat reproducible on palpation of the right chest wall. No swelling to the lower extremities. He notes that he did drink yesterday. EKG shows a normal sinus rhythm with a normal axis and a rate of 75. No acute ST changes. Labs are pending. He will be checked out to Dr. Cardona at shift change Lab Data: Labs: Lab Results 10/30/20 10/30/20 10/30/20 Range/Units 05:44 05:44 05:44 WBC 8.4 (4.0-10.0) 10^3/ uL RBC 5.38 H (4.1-5.3) 10^6/u L Hgb 17.5 H (11.7-16.6) g/dL Hct 53.0 H (42.0-52.0) % MCV 98.5 H (80-94) fL MCH 32.5 (28.0-34.0) pg MCHC 33.0 (30.0-36.0) g/dL RDW 13.3 (12.1-15.1) % Plt Count 306 (130-400) 10^3/c mm MPV 10.0 (7.4-10.4) fL Neut % (Auto) 65.0 % Lymph % (Auto) 26.9 % [place] % (Auto) 4.6 % Eos % (Auto) 2.6 % Baso % (Auto) 0.5 % Neut # (Auto) 5.46 (1.8-7.7) 10^3/u L Lymph # (Auto) 2.3 (0.8-4.8) 10^3/u L [place] # (Auto) 0.4 (0.2-0.9) 10^3/u L Eos # (Auto) 0.2 (0.0-0.8) 10^3/u L Baso # (Auto) 0.0 (0.0-0.1) 10^3/u L Nucleated RBC % (a uto) 0 % Nucleated RBCs # 0.0 /100WBC PT 13.00 (12.1-14.9) SECO NDS INR 0.95 (0.8-1.2) APTT 31.0 (23.9-36.7) SECO NDS Sodium 138 (136-145) mmol/L Potassium 4.4 (3.5-5.1) mmol/L Chloride 99 (98-107) mmol/L Carbon Dioxide 30 H (22-29) mmol/L Anion Gap 13.4 (5-19) BUN 4 L (6-20) mg/dL Creatinine 0.8 (0.7-1.2) mg/dL GFR Calculation 104.1 (90-130) mL/min Glucose 83 (65-115) mg/dL Calculated Osmolal ity 282 L (285-295) mOsm/k g Calcium 9.2 (8.5-10.5) mg/dL Total Bilirubin 0.4 (0.15-1.2) mg/dL AST 27 (0-40) U/L ALT 27 (0-41) U/L Alkaline Phosphata se 107 (40-130) IU/L Creatine Kinase 118 (39-308) U/L Troponin T Baselin e (0-15) ng/L Troponin T 120 Min [place] (0-15) ng/L Delta Troponin T (0-10) ABS# Troponin T Hi Sens 6Hr (0-15) ng/L Troponin T Hi Sens 6Hr Delta (0-12) ng/L NT-Pro-B Natriuret Pep 30 (0-125) pg/mL Total Protein 7.2 (6.6-8.7) g/dL Albumin 4.5 (3.5-5.2) g/dL Globulin 2.7 (1.3-4.6) g/dL Urine Color (Yellow) Urine Appearance (CLEAR) Urine pH (5-7) Ur Specific Gravit y (1.005-1.030) Urine Protein (Negative) Urine Glucose (UA) (Normal) Urine Ketones (Negative) Urine Blood (Negative) Urine Nitrate (Negative) Urine Bilirubin (Negative) Urine Urobilinogen (Negative) mg/dL Ur Leukocyte Ada ase (Negative) Urine Opiates Scre en (Negative) ng/mL Ur Barbiturates Sc reen (Negative) ng/mL Ur Phencyclidine S crn (Negative) ng/mL Ur Amphetamines Sc reen (Negative) ng/mL U Benzodiazepines Scrn (Negative) ng/mL Urine Cocaine Scre en (Negative) ng/mL U Marijuana (THC) Screen (Negative) ng/mL Ethyl Alcohol < 10 (0-10) mg/dL 10/30/20 10/30/20 10/30/20 Range/Units 05:44 06:00 06:00 WBC (4.0-10.0) 10^3/ uL RBC (4.1-5.3) 10^6/u L Hgb (11.7-16.6) g/dL Hct (42.0-52.0) % MCV (80-94) fL MCH (28.0-34.0) pg MCHC (30.0-36.0) g/dL RDW (12.1-15.1) % Plt Count (130-400) 10^3/c mm MPV (7.4-10.4) fL Neut % (Auto) % Lymph % (Auto) % [place] % (Auto) % Eos % (Auto) % Baso % (Auto) % Neut # (Auto) (1.8-7.7) 10^3/u L Lymph # (Auto) (0.8-4.8) 10^3/u L [place] # (Auto) (0.2-0.9) 10^3/u L Eos # (Auto) (0.0-0.8) 10^3/u L Baso # (Auto) (0.0-0.1) 10^3/u L Nucleated RBC % (a uto) % Nucleated RBCs # /100WBC PT (12.1-14.9) SECO NDS INR (0.8-1.2) APTT (23.9-36.7) SECO NDS Sodium (136-145) mmol/L Potassium (3.5-5.1) mmol/L Chloride (98-107) mmol/L Carbon Dioxide (22-29) mmol/L Anion Gap (5-19) BUN (6-20) mg/dL Creatinine (0.7-1.2) mg/dL GFR Calculation (90-130) mL/min Glucose (65-115) mg/dL Calculated Osmolal ity (285-295) mOsm/k g Calcium (8.5-10.5) mg/dL Total Bilirubin (0.15-1.2) mg/dL AST (0-40) U/L ALT (0-41) U/L Alkaline Phosphata se (40-130) IU/L Creatine Kinase (39-308) U/L Troponin T Baselin e 14 (0-15) ng/L Troponin T 120 Min [place] (0-15) ng/L Delta Troponin T (0-10) ABS# Troponin T Hi Sens 6Hr (0-15) ng/L Troponin T Hi Sens 6Hr Delta (0-12) ng/L NT-Pro-B Natriuret Pep (0-125) pg/mL Total Protein (6.6-8.7) g/dL Albumin (3.5-5.2) g/dL Globulin (1.3-4.6) g/dL Urine Color Straw (Yellow) Urine Appearance Clear (CLEAR) Urine pH 5 (5-7) Ur Specific Gravit y 1.005 (1.005-1.030) Urine Protein Neg (Negative) Urine Glucose (UA) Norm (Normal) Urine Ketones Negative (Negative) Urine Blood Neg (Negative) Urine Nitrate Negative (Negative) Urine Bilirubin Neg (Negative) Urine Urobilinogen Norm (Negative) mg/dL Ur Leukocyte Ada ase Negative (Negative) Urine Opiates Scre en Negative (Negative) ng/mL Ur Barbiturates Sc reen Negative (Negative) ng/mL Ur Phencyclidine S crn Negative (Negative) ng/mL Ur Amphetamines Sc reen Negative (Negative) ng/mL U Benzodiazepines Scrn Positive H (Negative) ng/mL Urine Cocaine Scre en Negative (Negative) ng/mL U Marijuana (THC) Screen Positive H (Negative) ng/mL Ethyl Alcohol (0-10) mg/dL 10/30/20 10/30/20 Range/Units 07:00 11:41 WBC (4.0-10.0) 10^3/ uL RBC (4.1-5.3) 10^6/u L Hgb (11.7-16.6) g/dL Hct (42.0-52.0) % MCV (80-94) fL MCH (28.0-34.0) pg MCHC (30.0-36.0) g/dL RDW (12.1-15.1) % Plt Count (130-400) 10^3/c mm MPV (7.4-10.4) fL Neut % (Auto) % Lymph % (Auto) % [place] % (Auto) % Eos % (Auto) % Baso % (Auto) % Neut # (Auto) (1.8-7.7) 10^3/u L Lymph # (Auto) (0.8-4.8) 10^3/u L [place] # (Auto) (0.2-0.9) 10^3/u L Eos # (Auto) (0.0-0.8) 10^3/u L Baso # (Auto) (0.0-0.1) 10^3/u L Nucleated RBC % (a uto) % Nucleated RBCs # /100WBC PT (12.1-14.9) SECO NDS INR (0.8-1.2) APTT (23.9-36.7) SECO NDS Sodium (136-145) mmol/L Potassium (3.5-5.1) mmol/L Chloride (98-107) mmol/L Carbon Dioxide (22-29) mmol/L Anion Gap (5-19) BUN (6-20) mg/dL Creatinine (0.7-1.2) mg/dL GFR Calculation (90-130) mL/min Glucose (65-115) mg/dL Calculated Osmolal ity (285-295) mOsm/k g Calcium (8.5-10.5) mg/dL Total Bilirubin (0.15-1.2) mg/dL AST (0-40) U/L ALT (0-41) U/L Alkaline Phosphata se (40-130) IU/L Creatine Kinase (39-308) U/L Troponin T Baselin e (0-15) ng/L Troponin T 120 Min [place] 28.37 H (0-15) ng/L Delta Troponin T 14.37 H* (0-10) ABS# Troponin T Hi Sens 6Hr 25.75 H (0-15) ng/L Troponin T Hi Sens 6Hr Delta 11.75 (0-12) ng/L NT-Pro-B Natriuret Pep (0-125) pg/mL Total Protein (6.6-8.7) g/dL Albumin (3.5-5.2) g/dL Globulin (1.3-4.6) g/dL Urine Color (Yellow) Urine Appearance (CLEAR) Urine pH (5-7) Ur Specific Gravit y (1.005-1.030) Urine Protein (Negative) Urine Glucose (UA) (Normal) Urine Ketones (Negative) Urine Blood (Negative) Urine Nitrate (Negative) Urine Bilirubin (Negative) Urine Urobilinogen (Negative) mg/dL Ur Leukocyte Ada ase (Negative) Urine Opiates Scre en (Negative) ng/mL Ur Barbiturates Sc reen (Negative) ng/mL Ur Phencyclidine S crn (Negative) ng/mL Ur Amphetamines Sc reen (Negative) ng/mL U Benzodiazepines Scrn (Negative) ng/mL Urine Cocaine Scre en (Negative) ng/mL U Marijuana (THC) Screen (Negative) ng/mL Ethyl Alcohol (0-10) mg/dL Discharge Plan Discharge Patient Disposition: Home Clinical Impression: Atypical chest pain, Cardiomyopathy, Alcohol dependence Condition: Stable Prescriptions: New amlodipine 2.5 mg tablet 2.5 mg PO DAILY Qty: 30 RF: 0 nitroglycerin 0.4 mg tablet, sublingual 0.4 mg sublingual Q5M PRN (Reason: chest pain) Qty: 30 RF: 0 No Action lisinopril 5 mg tablet 10 mg PO DAILY@06 RF: 0 venlafaxine 25 mg tablet 25 mg PO BID@06,20 RF: 0 Lipitor 40 mg tablet 40 mg PO DAILY@20 RF: 0 clopidogrel 75 mg tablet 75 mg PO DAILY@06 RF: 0 aspirin 81 mg tablet,delayed release (DR/EC) 81 mg PO DAILY@06 RF: 0 folic acid 1 mg tablet 1 mg PO DAILY@06 RF: 0 metoprolol tartrate 25 mg tablet 25 mg PO Q12H RF: 0 Thera 400 mcg tablet 1 tab PO DAILY@06 RF: 0 Discharge Orders: Discharge ED (Routine); Ordered 10/30/20 Ordered By: Allan Cardona Referrals: Arianna Hodge MD [Primary Care Provider] - Discharge Diet: Usual diet Discharge Activity: Increase activity as tolerated Activity Restrictions/Additional Instructions: Start new medications. Keep follow-up appointment Dr. Julio argueta this week. If chest pain not relieved by nitro return to the emergency room. Sign Out Sign Out Data: Patient Sign Out occurred on 10/30/20 at 06:25. Patient's care was discussed, and care was transferred from to Allan Cardona DO. Coding Level of Care Code ED Fws Faculty Assistant for Chg Fwd Exam Comprehensive Documented by User: Allan Cardona DO 10/30/20 13:32 HPI - Chest Pain General: Chief Complaint: Chest Pain Stated Complaint: chest pain Time Seen by Provider: 10/30/20 05:39 PFSH ED PFSH: Medical History Acute non-ST elevation myocardial infarction (NSTEMI) Alcohol dependence Benign essential HTN Coronary artery disease Elevated troponin Fatigue Heart disease High blood pressure Non-ST elevation [place] (NSTEMI) Smoking Ventricular arrhythmia Surgical History History of cholecystectomy Previous back surgery Family History Other CAD (coronary artery disease) Cancer Hypertension Social History Smoking and tobacco status: current every day smoker cigarettes Packs smoked per day: 1.5 Alcohol intake: current Alcohol intake frequency: 3 or more drinks per day Alcohol type: beer Household members: spouse and children Marital status: Number of children: 2 Highest education level completed: 8th Grade service: No Current occupational status: unemployed Pets and animals: Yes Current gender identity: Male Course Vital Signs: Vital signs: Vital Signs Temperature 97.2 F L 10/30/20 05:26 Pulse Rate 68 10/30/20 12:51 Respiratory Rate 18 10/30/20 12:51 Blood Pressure 144/104 10/30/20 12:51 Pulse Oximetry 99 10/30/20 12:51 MDM - Chest Pain MDM Narrative: Medical decision making narrative: She has a positive delta troponin of +14. He still notes chest pain when he gets up and walks to the bathroom but is very fleeting and resolves. He did drink heavily yesterday. In late September the patient had a cath which was essentially normal and no intervention was undertaken he was treated medically. He states he still has been taking his regular medications he was prescribed including dual platelet therapy JESSE inhibitor and beta-sandor. 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 Discussed the patient with Dr. Collado who is on-call. The really probably is not anything more that can be done other than further maximize static medical therapy the positive troponin is somewhat concerning but at this point Dr. Marroquin did not feel he would be a candidate to return to the [facility] Work[facility]. She will be further monitored in the emergency room and given dose of Lovenox. And half an inch of Nitropaste. Dr. Estrada will be coming to see him in the emergency room for consultation and make further recommendations. Dr. Estrada seen the patient in the emergency room. His 6-hour troponin did actually decreased. Given his recently had an angiogram., It was decided to treat the patient as an outpatient maximizing medical therapy Dr. Turner's note is in the chart she recommends adding amlodipine 2.5 mg daily and sublingual nitro as needed he has a follow-up appoint with Dr. Kim next week. If he has any further problems return to the emergency room. Lab Data: Labs: Lab Results 10/30/20 10/30/20 10/30/20 Range/Units 05:44 05:44 05:44 WBC 8.4 (4.0-10.0) 10^3/ uL RBC 5.38 H (4.1-5.3) 10^6/u L Hgb 17.5 H (11.7-16.6) g/dL Hct 53.0 H (42.0-52.0) % MCV 98.5 H (80-94) fL MCH 32.5 (28.0-34.0) pg MCHC 33.0 (30.0-36.0) g/dL RDW 13.3 (12.1-15.1) % Plt Count 306 (130-400) 10^3/c mm MPV 10.0 (7.4-10.4) fL Neut % (Auto) 65.0 % Lymph % (Auto) 26.9 % [place] % (Auto) 4.6 % Eos % (Auto) 2.6 % Baso % (Auto) 0.5 % Neut # (Auto) 5.46 (1.8-7.7) 10^3/u L Lymph # (Auto) 2.3 (0.8-4.8) 10^3/u L [place] # (Auto) 0.4 (0.2-0.9) 10^3/u L Eos # (Auto) 0.2 (0.0-0.8) 10^3/u L Baso # (Auto) 0.0 (0.0-0.1) 10^3/u L Nucleated RBC % (a uto) 0 % Nucleated RBCs # 0.0 /100WBC PT 13.00 (12.1-14.9) SECO NDS INR 0.95 (0.8-1.2) APTT 31.0 (23.9-36.7) SECO NDS Sodium 138 (136-145) mmol/L Potassium 4.4 (3.5-5.1) mmol/L Chloride 99 (98-107) mmol/L Carbon Dioxide 30 H (22-29) mmol/L Anion Gap 13.4 (5-19) BUN 4 L (6-20) mg/dL Creatinine 0.8 (0.7-1.2) mg/dL GFR Calculation 104.1 (90-130) mL/min Glucose 83 (65-115) mg/dL Calculated Osmolal ity 282 L (285-295) mOsm/k g Calcium 9.2 (8.5-10.5) mg/dL Total Bilirubin 0.4 (0.15-1.2) mg/dL AST 27 (0-40) U/L ALT 27 (0-41) U/L Alkaline Phosphata se 107 (40-130) IU/L Creatine Kinase 118 (39-308) U/L Troponin T Baselin e (0-15) ng/L Troponin T 120 Min [place] (0-15) ng/L Delta Troponin T (0-10) ABS# Troponin T Hi Sens 6Hr (0-15) ng/L Troponin T Hi Sens 6Hr Delta (0-12) ng/L NT-Pro-B Natriuret Pep 30 (0-125) pg/mL Total Protein 7.2 (6.6-8.7) g/dL Albumin 4.5 (3.5-5.2) g/dL Globulin 2.7 (1.3-4.6) g/dL Urine Color (Yellow) Urine Appearance (CLEAR) Urine pH (5-7) Ur Specific Gravit y (1.005-1.030) Urine Protein (Negative) Urine Glucose (UA) (Normal) Urine Ketones (Negative) Urine Blood (Negative) Urine Nitrate (Negative) Urine Bilirubin (Negative) Urine Urobilinogen (Negative) mg/dL Ur Leukocyte Ada ase (Negative) Urine Opiates Scre en (Negative) ng/mL Ur Barbiturates Sc reen (Negative) ng/mL Ur Phencyclidine S crn (Negative) ng/mL Ur Amphetamines Sc reen (Negative) ng/mL U Benzodiazepines Scrn (Negative) ng/mL Urine Cocaine Scre en (Negative) ng/mL U Marijuana (THC) Screen (Negative) ng/mL Ethyl Alcohol < 10 (0-10) mg/dL 10/30/20 10/30/20 10/30/20 Range/Units 05:44 06:00 06:00 WBC (4.0-10.0) 10^3/ uL RBC (4.1-5.3) 10^6/u L Hgb (11.7-16.6) g/dL Hct (42.0-52.0) % MCV (80-94) fL MCH (28.0-34.0) pg MCHC (30.0-36.0) g/dL RDW (12.1-15.1) % Plt Count (130-400) 10^3/c mm MPV (7.4-10.4) fL Neut % (Auto) % Lymph % (Auto) % [place] % (Auto) % Eos % (Auto) % Baso % (Auto) % Neut # (Auto) (1.8-7.7) 10^3/u L Lymph # (Auto) (0.8-4.8) 10^3/u L [place] # (Auto) (0.2-0.9) 10^3/u L Eos # (Auto) (0.0-0.8) 10^3/u L Baso # (Auto) (0.0-0.1) 10^3/u L Nucleated RBC % (a uto) % Nucleated RBCs # /100WBC PT (12.1-14.9) SECO NDS INR (0.8-1.2) APTT (23.9-36.7) SECO NDS Sodium (136-145) mmol/L Potassium (3.5-5.1) mmol/L Chloride (98-107) mmol/L Carbon Dioxide (22-29) mmol/L Anion Gap (5-19) BUN (6-20) mg/dL Creatinine (0.7-1.2) mg/dL GFR Calculation (90-130) mL/min Glucose (65-115) mg/dL Calculated Osmolal ity (285-295) mOsm/k g Calcium (8.5-10.5) mg/dL Total Bilirubin (0.15-1.2) mg/dL AST (0-40) U/L ALT (0-41) U/L Alkaline Phosphata se (40-130) IU/L Creatine Kinase (39-308) U/L Troponin T Baselin e 14 (0-15) ng/L Troponin T 120 Min [place] (0-15) ng/L Delta Troponin T (0-10) ABS# Troponin T Hi Sens 6Hr (0-15) ng/L Troponin T Hi Sens 6Hr Delta (0-12) ng/L NT-Pro-B Natriuret Pep (0-125) pg/mL Total Protein (6.6-8.7) g/dL Albumin (3.5-5.2) g/dL Globulin (1.3-4.6) g/dL Urine Color Straw (Yellow) Urine Appearance Clear (CLEAR) Urine pH 5 (5-7) Ur Specific Gravit y 1.005 (1.005-1.030) Urine Protein Neg (Negative) Urine Glucose (UA) Norm (Normal) Urine Ketones Negative (Negative) Urine Blood Neg (Negative) Urine Nitrate Negative (Negative) Urine Bilirubin Neg (Negative) Urine Urobilinogen Norm (Negative) mg/dL Ur Leukocyte Ada ase Negative (Negative) Urine Opiates Scre en Negative (Negative) ng/mL Ur Barbiturates Sc reen Negative (Negative) ng/mL Ur Phencyclidine S crn Negative (Negative) ng/mL Ur Amphetamines Sc reen Negative (Negative) ng/mL U Benzodiazepines Scrn Positive H (Negative) ng/mL Urine Cocaine Scre en Negative (Negative) ng/mL U Marijuana (THC) Screen Positive H (Negative) ng/mL Ethyl Alcohol (0-10) mg/dL 10/30/20 10/30/20 Range/Units 07:00 11:41 WBC (4.0-10.0) 10^3/ uL RBC (4.1-5.3) 10^6/u L Hgb (11.7-16.6) g/dL Hct (42.0-52.0) % MCV (80-94) fL MCH (28.0-34.0) pg MCHC (30.0-36.0) g/dL RDW (12.1-15.1) % Plt Count (130-400) 10^3/c mm MPV (7.4-10.4) fL Neut % (Auto) % Lymph % (Auto) % [place] % (Auto) % Eos % (Auto) % Baso % (Auto) % Neut # (Auto) (1.8-7.7) 10^3/u L Lymph # (Auto) (0.8-4.8) 10^3/u L [place] # (Auto) (0.2-0.9) 10^3/u L Eos # (Auto) (0.0-0.8) 10^3/u L Baso # (Auto) (0.0-0.1) 10^3/u L Nucleated RBC % (a uto) % Nucleated RBCs # /100WBC PT (12.1-14.9) SECO NDS INR (0.8-1.2) APTT (23.9-36.7) SECO NDS Sodium (136-145) mmol/L Potassium (3.5-5.1) mmol/L Chloride (98-107) mmol/L Carbon Dioxide (22-29) mmol/L Anion Gap (5-19) BUN (6-20) mg/dL Creatinine (0.7-1.2) mg/dL GFR Calculation (90-130) mL/min Glucose (65-115) mg/dL Calculated Osmolal ity (285-295) mOsm/k g Calcium (8.5-10.5) mg/dL Total Bilirubin (0.15-1.2) mg/dL AST (0-40) U/L ALT (0-41) U/L Alkaline Phosphata se (40-130) IU/L Creatine Kinase (39-308) U/L Troponin T Baselin e (0-15) ng/L Troponin T 120 Min [place] 28.37 H (0-15) ng/L Delta Troponin T 14.37 H* (0-10) ABS# Troponin T Hi Sens 6Hr 25.75 H (0-15) ng/L Troponin T Hi Sens 6Hr Delta 11.75 (0-12) ng/L NT-Pro-B Natriuret Pep (0-125) pg/mL Total Protein (6.6-8.7) g/dL Albumin (3.5-5.2) g/dL Globulin (1.3-4.6) g/dL Urine Color (Yellow) Urine Appearance (CLEAR) Urine pH (5-7) Ur Specific Gravit y (1.005-1.030) Urine Protein (Negative) Urine Glucose (UA) (Normal) Urine Ketones (Negative) Urine Blood (Negative) Urine Nitrate (Negative) Urine Bilirubin (Negative) Urine Urobilinogen (Negative) mg/dL Ur Leukocyte Ada ase (Negative) Urine Opiates Scre en (Negative) ng/mL Ur Barbiturates Sc reen (Negative) ng/mL Ur Phencyclidine S crn (Negative) ng/mL Ur Amphetamines Sc reen (Negative) ng/mL U Benzodiazepines Scrn (Negative) ng/mL Urine Cocaine Scre en (Negative) ng/mL U Marijuana (THC) Screen (Negative) ng/mL Ethyl Alcohol (0-10) mg/dL Discharge Plan Discharge Patient Disposition: Home Clinical Impression: Atypical chest pain, Cardiomyopathy, Alcohol dependence Condition: Stable Prescriptions: New amlodipine 2.5 mg tablet 2.5 mg PO DAILY Qty: 30 RF: 0 nitroglycerin 0.4 mg tablet, sublingual 0.4 mg sublingual Q5M PRN (Reason: chest pain) Qty: 30 RF: 0 No Action lisinopril 5 mg tablet 10 mg PO DAILY@06 RF: 0 venlafaxine 25 mg tablet 25 mg PO BID@06,20 RF: 0 Lipitor 40 mg tablet 40 mg PO DAILY@20 RF: 0 clopidogrel 75 mg tablet 75 mg PO DAILY@06 RF: 0 aspirin 81 mg tablet,delayed release (DR/EC) 81 mg PO DAILY@06 RF: 0 folic acid 1 mg tablet 1 mg PO DAILY@06 RF: 0 metoprolol tartrate 25 mg tablet 25 mg PO Q12H RF: 0 Thera 400 mcg tablet 1 tab PO DAILY@06 RF: 0 Discharge Orders: Discharge ED (Routine); Ordered 10/30/20 Ordered By: Allan Cardona Referrals: Arianna Hodge MD [Primary Care Provider] - Discharge Diet: Usual diet Discharge Activity: Increase activity as tolerated Activity Restrictions/Additional Instructions: Start new medications. Keep follow-up appointment Dr. Kim later this week. If chest pain not relieved by nitro return to the emergency room. Sign Out Sign Out Data: Patient Sign Out occurred on 10/30/20 at 06:25. Patient's care was discussed, and care was transferred from to Allan Cardona DO. Coding Level of Care Code ED Fws Faculty Assistant for Jameelg Fwd Exam Comprehensive
[2020-10-30] MEDS: aspirin 325 mg Tablet PO (06:06)
[2020-10-30] MEDS: morphine 4 mg/mL SDV 1 mL IVP (06:06)
[2020-10-30] MEDS: ondansetron 2 mg/ML SDV 2 mL 4 MG IVP (06:06)
[2020-10-30 06:13] LABS: Basophils % 0.5 %; Eosinophils # 0.2 10^3/uL (0.0-0.8); Eosinophils % 2.6 %; Hemoglobin 17.5 g/dL (11.7-16.6); Lymphocytes # 2.3 10^3/uL (0.8-4.8); Lymphocytes % 26.9 %; Mean Corpuscular Hemoglobin 32.5 pg (28.0-34.0); Mean Corpuscular Volume 98.5 fL (80-94); Monocytes # 0.4 10^3/uL (0.2-0.9); Monocytes % 4.6 %; Neutrophils # 5.46 10^3/uL (1.8-7.7); Nucleated Red Blood Cells % 0 %; Platelet Count 306 10^3/cmm (130-400); Red Blood Count 5.38 10^6/uL (4.1-5.3); Red Cell Distribution Width 13.3 % (12.1-15.1); White Blood Count 8.4 10^3/uL (4.0-10.0)
[2020-10-30 06:25] LABS: Add Urine Microscopic? NO
[2020-10-30 06:34] LABS: INR 0.95 (0.8-1.2)
[2020-10-30 06:45] LABS: Troponin(5th) Baseline 14 ng/L (0-15)
[2020-10-30 06:47] LABS: Amphetamines Screen Urine Negative (Negative); Barbiturates Screen Urine Negative (Negative); Benzodiazepines Screen Urine Positive (Negative); Cocaine Screen Urine Negative (Negative); Opiate Screen Urine Negative (Negative); PCP Screen Urine Negative (Negative); THC Screen Urine Positive (Negative)
[2020-10-30 06:54] LABS: Alanine Aminotransferase 27 U/L (0-41); Albumin Level 4.5 g/dL (3.5-5.2); Alkaline Phosphatase 107 IU/L (40-130); Aspartate Amino Transferase 27 U/L (0-40); Blood Urea Nitrogen 4 mg/dL (6-20); Calcium 9.2 mg/dL (8.5-10.5); Carbon Dioxide 30 mmol/L (22-29); Chloride 99 mmol/L (98-107); Creatine Phosphokinase 118 U/L (39-308); Globulin 2.7 g/dL (1.3-4.6); Glomerular Filtration Rate 104.1 mL/min (90-130); Glucose 83 mg/dL (65-115); NT Pro B Type Natriuretic Pept 30 pg/mL (0-125); Osmolality Calculated 282 mOsm/kg (285-295); Sodium 138 mmol/L (136-145); Total Bilirubin 0.4 mg/dL (0.15-1.2); Total Protein 7.2 g/dL (6.6-8.7)
[2020-10-30 07:02] LABS: Alcohol Level < 10 mg/dL (0-10)
[2020-10-30 07:03] LABS: Anion Gap 13.4 (5-19)
[2020-10-30 07:04] LABS: Potassium 4.4 mmol/L (3.5-5.1)
[2020-10-30 07:13] LABS: Bilirubin Urine Neg (Negative); Blood Urine Neg (Negative); Glucose Urine UA Norm (Normal); Ketones Urine Negative (Negative); Leukocyte Esterase Urine Negative (Negative); Nitrate Urine Negative (Negative); Protein Urine Neg (Negative); Specific Gravity, Urine 1.005 (1.005-1.030); Urine Appearance Clear (CLEAR); Urine Color Straw (Yellow); Urobilinogen Urine Norm (Negative); pH Urine 5 (5-7)
--- NOTE | 2020-10-30 07:39 | ECG_ITS ---
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 Measurements Intervals [place] Rate: 68 P: 34 MT: 193 QRS: 54 QRSD: 106 T: 70 QT: 397 QTc: 422 Interpretive Statements SINUS RHYTHM Compared to ECG 10/11/2020 16:19:12 Intraventricular conduction delay no longer present Electronically Signed On 10-30-2020 18:02:18 FABRICATION INSPECTOR by Archana Marroquin M.D. [email or web address]
[2020-10-30 07:59] LABS: Troponin 5 2HR 28.37 ng/L (0-15)
[2020-10-30 08:14] LABS: Troponin 5 2HR Delta 14.37 ABS# (0-10)
[2020-10-30] MEDS: enoxaparin 100 mg/mL Syringe SUBCUT (08:29)
[2020-10-30] MEDS: nitroglycerin 1 gm/inch oint Pkt 0.5 INCH TOPICAL (08:30)
--- NOTE | 2020-10-30 11:33 | P.CONIM_ITS ---
Providers/Reason For Consult Consulting Physican/Specialty*: Dr. Marroquin, cardiology Reason for Consult*: Elevated troponin, history of nonischemic cardiomyopathy Requesting Physcian: Dr. Cardona Primary Care Provider: Arianna Hodge MD History of Present Illness History of Present Illness Miky Edwards is a 45 year old male with past medical history of hypertension, heavy alcohol and tobacco abuse (1 and half to 2 packs/day for more than 30 years ), recent [place], recent diagnosis of alcohol induced cardiomyopathy who was recently hospitalized on 11 October with complaints of chest discomfort. He was evaluated by Dr. Kim at the time. He does give history of [place] in his father in his 50s or 60s. As he has had stress test in the past that have been normal decision was made to do a cardiac catheterization. Coronary angiogram was performed on 12 October 2020 that did not show any severely stenotic lesions. He drank more than 10 beers and smoked Marijuana as well . He started having some chest pain that felt like someone sitting on his chest with radiation to both forearms and hands. Prior to this episode he was having chest pain described as twinges. He was accompanied by his today. His blood pressure on arrival was 131/87 mmHg with heart rate of 61 bpm and saturating 96% on room air. Labs this morning with hemoglobin 17.5, WBC 8.4, platelets 306. Potassium 4.4, BUN 4, creatinine 0.8. Normal liver panel. Baseline troponin T of 14 and at 120 minutes of 28.4. 6-hour troponin of 25.75. His EKG with no significant ST-T wave changes. He feels fine now. He states he is ready to go home. Review of Systems General: Reports: 10 or more systems reviewed and unremarkable except in HPI and below Const: Denies: fever(s) Eyes: Denies: change in vision ENMT: Denies: odynophagia, dental pain, change in hearing or sinus pain Card: Denies: syncope Resp: Reports: dyspnea GI: Denies: nausea or vomiting : Denies: difficulty urinating or hematuria Musc: Reports: other (back pain); Denies: neck pain, back pain, joint redness or joint warmth Skin/Breast: Denies: rash, pruritus or erythema Neuro: Denies: headache(s), dizziness or vertigo Psych: Denies: anxiety Meds/Allergies Home Medications and Allergies Home Medications Medication Instructions Recorded Confirmed Last Taken Type venlafaxine 25 mg PO BID@,10/11/20 10/30/20 10/29/20 History lisinopril 5 mg tablet 10 mg PO DAILY@06 tab 10/28/20 10/30/20 10/29/20 History aspirin 81 mg PO DAILY@10/30/20 10/30/20 10/30/20 History atorvastatin [Lipitor] 40 mg PO DAILY@10/30/20 10/30/20 10/29/20 History clopidogrel 75 mg PO DAILY@10/30/20 10/30/20 10/29/20 History folic acid 1 mg PO DAILY@10/30/20 10/30/20 10/29/20 History metoprolol tartrate 25 mg PO Q12H 10/30/20 10/30/20 10/30/20 History multivitamin with folic acid 1 tab PO DAILY@10/30/20 10/30/20 10/29/20 History [Thera] Allergies Allergy/AdvReac Type Severity Reaction Status Date / Time Penicillins Allergy Unknown rash Verified 10/19/20 15:38 PFSH Acute PFSH: Medical History Acute non-ST elevation myocardial infarction (NSTEMI) Alcohol dependence Benign essential HTN Coronary artery disease Elevated troponin Fatigue Heart disease High blood pressure Non-ST elevation [place] (NSTEMI) Smoking Ventricular arrhythmia Surgical History History of cholecystectomy Previous back surgery Family History Other CAD (coronary artery disease) Cancer Hypertension Social History Smoking and tobacco status: current every day smoker cigarettes Packs smoked per day: 1.5 Alcohol intake: current Alcohol intake frequency: 3 or more drinks per day Alcohol type: beer Household members: spouse and children Marital status: Number of children: 2 Highest education level completed: 8th Grade service: No Current occupational status: unemployed Pets and animals: Yes Current gender identity: Male Vitals/I&O/Wt Last Vital Signs Temp 97.2 F L 10/30/20 05:26 Pulse 68 10/30/20 11:28 Resp 15 10/30/20 11:28 BP 130/93 10/30/20 11:28 Pulse Ox 97 10/30/20 11:28 Weight last 48 hrs Weight 216 lb Physical Exam Narrative: EXAM NARRATIVE: GENERAL: obese man, looking oilder than stated age in no acute distress HEENT: Extraocular movement intact. Pupils equal round reactive to light. No pallor or icterus. NECK: central trachea, No JVD. No carotid bruit. CARDIOVASCULAR SYSTEM: S1-S2 regular. No S3 or S4 present. No murmur rubs or gallops. RESPIRATORY SYSTEM: Chest clear to auscultation. No wheezes rhonchi or rubs heard. ABDOMEN: Soft, nontender and nondistended. Normal bowel sounds present. EXTREMITIES: No cyanosis or clubbing. No edema. No signs of chronic venous insufficiency. LEAD CARPENTER: Patient is alert oriented ?3. No focal neurological deficits. Cranial nerves intact. SKIN: Normal turgor and temperature. No breakdown, rash or nail changes noted. PSYCH: Normal insight and judgment. Data Labs: Other Labs: Lipid panel with total cholesterol 151, triglyceride 224, LDL 73 and HDL 33. Urinalysis with positive benzodiazepine and positive marijuana alcohol level less than 10. UA negative. Other Data: Attestation for Other Data: I personally reviewed and interpreted the following: Other data: 12/13/19 Procedure(s): LIVESTOCK RANCH HAND request for service Diagnostic Findings * Left main is a medium caliber elongated vessel with some minimal irregularities. No significant stenotic lesions. * The left anterior descending artery is a medium caliber vessel which appears to taper off towards the left ventricular apex. The proximal and the mid segment of the artery was found to have around 20 to 30% irregular diffuse narrowing. The artery gives off a high diagonal branch of equal caliber, appears to be an intermediate artery. This is artery also was found to have mild diffuse irregular narrowing in the proximal segment of around 20% no other significant stenotic lesions were noted. * The left circumflex artery is a medium caliber nondominant vessel which was found to have no significant stenotic lesions. It gives off a small atrial branch proximally which has an ostial around 40% narrowing. * The right * coronary artery is a medium to large caliber dominant vessel which was found to have minimal intimal irregularities distally. The PLV and the PDA branch of the artery also were found to have some minimal intimal irregularities. No significant stenotic lesions. Conclusion: 1. No significant disease noted in the Left Main, LAD, Circumflex, or RCA coronary arteries. 2. Mild left ventricular systolic dysfunction. Ejection fraction of 45%. 3. This is a 45-year-old white male with a history of hypertension, smoking abuse and heavy alcohol abuse, presented with prolonged chest pain and elevated troponin T. Echocardiogram revealed diffuse hypokinesia left ventricle with diminished ejection fraction. Clinical features were consistent with a non-ST relation myocardial infarction. In view of the patient's presenting symptoms and the abnormal objective findings, in order to further evaluate his coronary status, a cardiac catheterization was recommended. Patient underwent left heart catheterization with left and right coronary angiogram and LV angiogram today. The findings are as follows.. 4. Mild diffuse coronary artery disease. Diminished left ventricular ejection fraction of 45%. LVEDP of 4 mmHg. 10/12/20 Procedure(s): CV echo complete* [id number] FINDINGS Left Ventricle Mild diffuse hypokinesia of the septum, anteroseptum and inferolateral wall segments. LV ejection fraction around 40% CONCLUSIONS Mild diffuse hypokinesia of the septum, anteroseptum and inferolateral wall segments. LV ejection fraction around 40%. There is no pericardial effusion. There are no intracardiac masses. Possibly normal chamber sizes. Technically difficult study because of the poor ultrasonic window. 30 October 2020 Chest x-ray IMPRESSION: Increased interstitial markings in the lower hemithoraces could represent atelectasis although bilateral interstitial pneumonitis cannot be excluded. A&P Assessment and plan (1) Chest pain: Chest pain could be in setting of coronary vasospasm. -will start on low dose amlodipine 2.5 mg daily and NTG SL PRN. Status: Acute Qualifiers: Chest pain type: unspecified Qualified Code(s): R07.9 - Chest pain, unspecified (2) Coronary artery disease: Mild CAD on coronary angiogram. -recent [place] -continue DAPT for 1 month and then may stop plavix. -comtinue ASA, statin and beta sandor. Status: Acute Qualifiers: Associated angina: with unspecified angina Coronary Disease-Associated Artery/Lesion type: [place] artery [place] vs. transplanted heart: [place] heart Qualified Code(s): I25.119 - Atherosclerotic heart disease of [place] coronary artery with unspecified angina pectoris (3) Alcohol dependence: advised again extensively on cutting back and eventually stopping drinking. -DAPT + alcohol will increase chances of GI bleed -would benefit from PPI for prevention as I do not believe he is going to stop drinking any time soon. Status: Chronic Qualifiers: Complication of substance-induced condition: uncomplicated Substance use status: with intoxication Qualified Code(s): F10.220 - Alcohol dependence with intoxication, uncomplicated (4) Cardiomyopathy: continue lisinopril. -Transition to metoprolol succinate as an outpatient. Status: Acute Qualifiers: Cardiomyopathy type: alcoholic Qualified Code(s): I42.6 - Alcoholic cardiomyopathy (5) Smoking: Status: Acute (6) Benign essential HTN: Status: Acute Additional A&P Information Elevated troponin -in setting of vasospasm? Marijuana abuse Thank you for allowing me to participate in patient's care. Please feel free to call with questions or concerns. -Stable to be discharged home from cardiac standpoint. -Follow up with Dr. Kim as scheduled in 2 weeks. Coding Level of Care Code Acute Branding Specialist for Liv Crisostomo Diagnoses Chest pain R07.9 Chest pain type: unspecified Coronary artery disease I25.119 Associated angina: with unspecified angina Coronary Disease-Associated Artery/Lesion type: [place] artery [place] vs. transplanted heart: [place] heart Alcohol dependence F10.220 Complication of substance-induced condition: uncomplicated Substance use status: with intoxication Cardiomyopathy I42.6 Cardiomyopathy type: alcoholic Smoking F17.200 Benign essential HTN I10
--- NOTE | 2020-10-30 11:39 | ECG_ITS ---
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 Measurements Intervals [place] Rate: 64 P: 27 SD: 189 QRS: 48 QRSD: 104 T: 64 QT: 401 QTc: 415 Interpretive Statements SINUS RHYTHM Compared to ECG 10/30/2020 07:25:45 No significant changes Electronically Signed On 10-30-2020 18:00:43 SWEATBAND SEPARATOR by Archana Marroquni M.D. [id number]
[2020-10-30 12:08] LABS: Troponin 5 6HR 25.75 ng/L (0-15); Troponin 5 6HR Delta 11.75 ng/L (0-12)
== END 2020-10-30 13:33 | disposition home or self-care (01) ==
PROVIDERS: Emergency Medicine; Emergency Provider Family Medicine; PCP Family Medicine
DX: R07.89 Other chest pain (principal); I42.9 Cardiomyopathy, unspecified; F10.20 Alcohol dependence, uncomplicated; Z79.82 Long term (current) use of aspirin; Z79.02 Long term (current) use of antithrombotics/antiplatelets; Y90.0 Blood alcohol level of less than 20 mg/100 ml; I25.2 Old myocardial infarction; I10 Essential (primary) hypertension; I25.10 Atherosclerotic heart disease of native coronary artery without angina pectoris; F17.210 Nicotine dependence, cigarettes, uncomplicated
CPT/HCPCS: 12345; 36415; 71045; 80053; 80306; 80307; 81003; 82550; 83880; 84484; 85025; 85610; 85730; 93005; 96372; 96374; 96375; 99283; 99284; J1650; J2270; J2405

== ENCOUNTER → 2020-11-30 13:53 | Outpatient (BNVA) | payer MEDICAID, SELFPAY | PROVIDERS: PCP Family Medicine; Visit Provider Internal Medicine Cardiovascular Disease | DX: E78.5 Hyperlipidemia, unspecified (principal) | CPT/HCPCS: 80061; 80076 ==

== ENCOUNTER → 2021-02-14 07:34 | Outpatient (BNVA) | payer MEDICAID, SELFPAY | PROVIDERS: PCP Family Medicine; Visit Provider Nurse Practitioner Psychiatric/Mental Health | DX: F33.9 Major depressive disorder, recurrent, unspecified (principal); F41.1 Generalized anxiety disorder | CPT/HCPCS: 99213 ==

== ENCOUNTER → 2021-03-01 09:14 | Outpatient (BNVA) | payer MEDICAID, SELFPAY | PROVIDERS: PCP Family Medicine; Visit Provider Internal Medicine Cardiovascular Disease | DX: E78.5 Hyperlipidemia, unspecified (principal) | CPT/HCPCS: 80061 ==

== ENCOUNTER 2021-04-21 12:24 | Outpatient (CLI) | payer MEDICAID, SELFPAY ==
--- NOTE | 2021-04-21 12:45 | USCV_ITS ---
Miky Edwards Age: 45 Gender: M : 1975 Exam Date: 04/21/2021 12:51 Ordering Phys: Anna Kim MD ([email or web address]) Technologist: [place] [facility] [place]: PC EFFUSION BP: 120 / 90 HR: 77 Rhythm: Sinus Technical Quality: Adequate MEASUREMENTS (Male / Female) Normal Values 2D ECHO LV Diastolic Diameter PLAX 3.7 cm 4.2 - 5.9 / 3.9 - 5.3 cm LV Systolic Diameter PLAX 2.8 cm IVS Diastolic Thickness 0.8 cm 0.6 - 1.0 / 0.6 - 0.9 cm IVS Systolic Thickness 1.2 cm LVPW Diastolic Thickness 1.1 cm 0.6 - 1.0 / 0.6 - 0.9 cm LVPW Systolic Thickness 0.9 cm LVOT Diameter 2.0 cm LV Ejection Fraction 2D Teich 51.3 % LV Ejection Fraction MOD 2C 69.5 % LV Ejection Fraction 2C AL 68.4 % LA Diameter 3.8 cm LA Width 4.3 cm LA Height 4.3 cm RA Width 3.7 cm RA Height 4.9 cm Aorta at Sinotubular Diameter 2.8 cm DOPPLER AV Peak Velocity 124.0 cm/s LVOT Peak Velocity 92.0 cm/s AV Area Cont Eq vti 2.5 cm squared AV Area Cont Eq pk 2.3 cm squared MV Area PHT 5.0 cm squared Mitral E to A Ratio 0.7 MV E' Velocity 32.5 cm/s Mitral E to MV E' Ratio 5.7 Mitral E to LV E' Lateral Ratio 5.5 Mitral E to LV E' Septal Ratio 6.1 TR Peak Velocity 139.3 cm/s TR Peak Gradient 7.8 mmHg TV Peak E Velocity 89.0 cm/s Right Atrial Pressure 3.0 mmHg Pulmonary Artery Systolic Pressu 10.8 mmHg FINDINGS Left Ventricle Normal LV size with borderline low ejection fraction 50 to 55%. Relative hypokinesia of the inferolateral wall segment.Grade I/IV diastolic dysfunction (abnormal relaxation filling pattern), normal to mildly elevated filling pressures. Right Ventricle The right ventricle is normal in size and function. Right Atrium The right atrium is normal in size. Left Atrium The left atrium is normal in size. Mitral Valve No gross abnormalities noted Aortic Valve No gross abnormalities noted Tricuspid Valve No gross abnormalities noted Pulmonic Valve No gross abnormalities noted Pericardium Normal pericardium without effusion. Aorta Normal ascending aorta dimension. CONCLUSIONS Normal LV size with borderline low ejection fraction 50 to 55%. Relative hypokinesia of the inferolateral wall segment. Grade I/IV diastolic dysfunction (abnormal relaxation filling pattern), normal to mildly elevated filling pressures. Normal cardiac chamber sizes. No significant valvular abnormalities There is no pericardial effusion. There are no intracardiac masses. Compared to the previous study from 10/12/2020, there is significant improvement in the LV ejection fraction Dr Anna Kim MD FACC (Electronically Signed) Final Date: 21 April 2021 18:14 S
== END 2021-04-21 12:25 | disposition home or self-care (01) ==
LOC: US 12:24
PROVIDERS: PCP Family Medicine; Visit Provider Internal Medicine Cardiovascular Disease
DX: I31.3 Pericardial effusion (noninflammatory) (principal); I51.9 Heart disease, unspecified
CPT/HCPCS: 93306

== ENCOUNTER → 2021-05-02 08:49 | Outpatient (BNVA) | payer MEDICAID, SELFPAY | PROVIDERS: PCP Family Medicine; Visit Provider Internal Medicine Cardiovascular Disease | DX: E78.5 Hyperlipidemia, unspecified (principal) | CPT/HCPCS: 80061 ==

== ENCOUNTER → 2021-05-12 07:28 | Outpatient (BNVA) | payer MEDICAID, SELFPAY | PROVIDERS: PCP Family Medicine; Visit Provider Nurse Practitioner Psychiatric/Mental Health | DX: F33.9 Major depressive disorder, recurrent, unspecified (principal); F41.1 Generalized anxiety disorder | CPT/HCPCS: 99214 ==

== ENCOUNTER 2021-06-06 10:59 | Outpatient (CLI) | payer OTHER, SELFPAY ==
--- NOTE | 2021-06-06 11:11 | XR_ITS ---
WS: [id number] LUMBAR SPINE: 3 VIEWS TECHNIQUE: AP, lateral and L5-S1 spot. HISTORY: BACK PAIN COMPARISON: None available. Mild LEFT curvature lumbar spine. Mild disc space narrowing and endplate osteophytosis throughout the lumbar spine. Moderate facet joint arthritis at L5-S1. Pedicles are all identified. Caldwell rods are noted at the thoracolumbar junction extending to L1. The entire rods are not imag ed. Mild bilateral SI joint narrowing. Cholecystectomy. Mild atherosclerosis aorta. XR/XR lumbar spine 2-3V* [id number] IMPRESSION: 1. Mild LEFT curvature lumbar spine and mild lumbar spondylosis. 2. Caldwell rods at the thoracolumbar junction extending to L1. 3. Mild bilateral SI joint narrowing.
== END 2021-06-06 11:00 | disposition home or self-care (01) ==
PROVIDERS: PCP Family Medicine; Visit Provider Dermatology
DX: M47.816 Spondylosis without myelopathy or radiculopathy, lumbar region (principal)
CPT/HCPCS: 72100

== ENCOUNTER → 2021-07-07 08:28 | Outpatient (BNVA) | payer MEDICAID, SELFPAY | PROVIDERS: PCP Family Medicine; Visit Provider Nurse Practitioner Psychiatric/Mental Health | DX: F33.9 Major depressive disorder, recurrent, unspecified (principal); F41.1 Generalized anxiety disorder | CPT/HCPCS: 99213 ==

== ENCOUNTER 2021-08-14 12:51 | Emergency (ER) | payer MEDICAID, SELFPAY ==
--- NOTE | 2021-08-14 12:54 | XRR_ITS ---
PROCEDURE INFORMATION: Exam: XR Chest Exam date and time: 08/14/2021 12:54 PM Age: 46 years old Clinical indication: Left-sided chest pain. TECHNIQUE: Imaging protocol: XR of the chest. Views: 1 view. COMPARISON: CR XR chest 1V portable [id number] 10/30/2020 5:54 AM FINDINGS: Tubes, catheters and devices: Bilateral Caldwell rods are incompletely visualized. Lungs: Smooth bulging of the right hilum could reflect an ascending thoracic aortic aneurysm. No pulmonary consolidation. Pleural spaces: No pleural effusion.. No pneumothorax. Heart/Mediastinum: The cardiac silhouette is approximately unchanged given differences in technique. No gross evidence of pneumomediastinum. Bones/joints: No gross fracture. XR/XR chest 1V portable [id number] IMPRESSION: 1. Smooth bulging of the right hilum could reflect an ascending thoracic aortic aneurysm. Consider CTA chest to further assess if clinically warranted. 2. Cardiomegaly. Radiation Dose CTDIVOL = (mGy): DLP = (mGy-cm)
--- NOTE | 2021-08-14 12:54 | ECG_ITS ---
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 Measurements Intervals [place] Rate: 78 P: 30 SD: 164 QRS: 56 QRSD: 102 T: 45 QT: 353 QTc: 404 Interpretive Statements SINUS RHYTHM Compared to ECG 10/30/2020 12:24:05 No significant changes Electronically Signed On 08-14-2021 18:20:48 CDT by Anna Kim M.D. [id number]
[2021-08-14 12:57] VITALS: BP 123/90; PULSE 80; RESP 15; TEMP 36.9; O2SAT 98; BMI 30.7
--- NOTE | 2021-08-14 13:43 | ED_ITS ---
HPI - Chest Pain General: Chief Complaint: Chest Pain Stated Complaint: CP, HAS TAKEN 2 NITRO-SOME RELIEF Time Seen by Provider: 08/14/21 13:42 Source: patient Mode of arrival: ambulatory Limitations: no limitations History of Present Illness: HPI narrative: 46 year old male had sudden onset chest tightness and pressure this morning shortly after getting up. rated as 10/10. Improved slightly after 2 doses of nitro. chronic cough and dyspnea, slightly worse than usual with increased phlegm no palpitations or dizziness. feeling better now. pain radiated down both arms and around to his back worse with deep breathing. has stopped taking his PPI because it was giving him GI side effects, but now his heartburn is worse. MD complaint: chest pain, chest heaviness and chest discomfort Pertinent past history: coronary artery disease Associated symptoms: Reports dyspnea; Deny abdominal pain, fever(s), nausea, palpitations, syncope or vomiting Review of Systems General: Reports: 10 or more systems reviewed and unremarkable except in HPI and below Const: Denies: fever(s), chills, body aches or change in appetite Eyes: Denies: change in vision, blurry vision or blind spots ENMT: Denies: throat pain, odynophagia or hoarseness Card: Reports: chest pain; Denies: palpitations, irregular heart rhythm, edema, swelling of feet/ankles, lightheadedness, syncope, dyspnea on exertion or orthopnea Resp: Reports: dyspnea, productive cough, wheezing and chest congestion GI: Denies: abdominal pain, nausea, vomiting or dysphagia : Denies: flank pain, difficulty urinating or dysuria Musc: Denies: neck pain or back pain Skin/Breast: Denies: rash, pruritus or erythema PFSH ED PFSH: Medical History Acute non-ST elevation myocardial infarction (NSTEMI) Alcohol dependence Benign essential HTN Coronary artery disease Elevated troponin Fatigue Gastroesophageal reflux disease Heart disease High blood pressure Non-ST elevation [place] (NSTEMI) Psychiatric care Smoking Ventricular arrhythmia Surgical History History of cholecystectomy Previous back surgery Family History Father CAD (coronary artery disease) Cancer Brother CAD (coronary artery disease) Hypertension Cancer Lung disease Sister Cancer Chronic kidney disease (CKD) Suicide Denies family history of Diabetes Clotting disorder Dementia Anesthesia complication Bleeding disorder Stroke Social History Smoking and tobacco status: current every day smoker cigarettes Packs smoked per day: 1.5 Alcohol intake: current Alcohol intake frequency: 3 or more drinks per day Alcohol type: beer Household members: spouse and children Marital status: Number of children: 2 Highest education level completed: 8th Grade service: No Current occupational status: unemployed Pets and animals: Yes Current gender identity: Male Physical Exam Const: COMMON NORMALS: no acute distress, average body habitus, patient oriented x3 and healthy appearing EXAM LIMITATIONS: no altered mental status and no behavioral limitations GENERAL APPEARANCE: cooperative, comfortable and well developed; not in distress and not anxious ORIENTATION/CONSCIOUSNESS: Yes awake, Yes oriented to person and Yes oriented to place HENMT: COMMON NORMALS: normocephalic and atraumatic HEAD & SCALP: normocephalic and atraumatic FACE & SINUS: normal facial exam and face symmetric Eye: COMMON NORMALS: Equal, round and reactive pupils present, EOMs intact bilaterally, conjunctivae normal and no scleral icterus CONJUNCTIVA: Yes conjunctivae normal PUPIL: Yes Equal, round and reactive pupils present Neck/C-Spine: COMMON NORMALS: full ROM, no lymphadenopathy, supple and no JVD Lymph: LYMPHATIC: no lymphadenopathy noted Chest: COMMONS NORMALS: normal inspection of the chest Breast/axilla inspection: Yes no chest deformity, asymmetry, normal contours, no nodules, masses, tenderness Resp: COMMON NORMALS: normal respiratory effort and No use of accessory muscles EFFORT & INSPECTION: No tachypneic, No respiratory distress and No Actively coughing AUSCULTATION: rhonchi and wheezes Cardio: COMMON NORMALS: no JVD, regular rate, regular rhythm, S1 normal heart sound present and S2 normal heart sound present RATE: regular rate RHYTHM: regular rhythm HEART SOUNDS: S1 normal heart sound present and S2 normal heart sound present GI: COMMON NORMALS: Normal to inspection, nondistended, normoactive bowel sounds present, Soft to palpation and non-tender INSPECTION: Yes normal to inspection AUSCULTATION: Yes normoactive bowel sounds PALPATION: Yes Soft to palpation, No Guarding due to palpation present (GI) and No Hepatosplenomegaly present Neuro: COMMON NORMALS: patient oriented x3 SENSORIUM/ORIENTATION: Yes oriented to person and Yes oriented to place Skin: COMMON NORMALS: no rashes or lesions noted, no wounds, turgor normal and no jaundice GENERAL SKIN EXAM: no rashes or lesions noted and turgor normal Course Vital Signs: Vital signs: Vital Signs Temperature 97.9 F 08/14/21 15:42 Pulse Rate 83 08/14/21 17:01 Respiratory Rate 18 08/14/21 15:42 Blood Pressure 146/95 08/14/21 17:01 Pulse Oximetry 93 08/14/21 17:01 MDM - Chest Pain MDM Narrative: Medical decision making narrative: 46 year old with Chest pain since 9am, slightly improved with Nitro Hx of CAD and COPD normal EKG x2, serial troponin levels stable,wnl CTA negative for acute process Discussed trying a different medication for his GERD- treat for COPD exacerbation. Followup with cardiology as scheduled. Differential Diagnosis: Cardiac arrest differential diagnosis: Likely acute massive pulmonary embolism, acute respiratory failure and acute myocardial infarction Medical Records: Attestation: I reviewed the patient's medical records. Lab Data: Attestation: I reviewed the patient's lab results. Labs: Lab Results 08/14/21 08/14/21 08/14/21 13:55 13:55 13:55 WBC 5.7 10^3/uL 10^3/ uL (4.0-10.0) RBC 5.28 10^6/uL 10^6 /uL (4.1-5.3) Hgb 17.1 g/dL H g/dL (11.7-16.6) Hct 50.4 % % (42.0-52.0) MCV 95.5 fl H fl (80-94) MCH 32.4 pg pg (28.0-34.0) MCHC 33.9 g/dL g/dL (30.0-36.0) RDW 12.6 % % (12.1-15.1) Plt Count 264 10^3/cmm 10^3 /cmm (130-400) MPV 9.7 fL fL (7.4-10.4) Neut % (Auto) 52.1 % % Lymph % (Auto) 37.2 % % [place] % (Auto) 6.6 % % Eos % (Auto) 3.1 % % Baso % (Auto) 0.7 % % Neut # (Auto) 2.98 10^3/uL 10^3 /uL (1.8-7.7) Lymph # (Auto) 2.1 10^3/uL 10^3/ uL (0.8-4.8) [place] # (Auto) 0.4 10^3/uL 10^3/ uL (0.2-0.9) Eos # (Auto) 0.2 10^3/uL 10^3/ uL (0.0-0.8) Baso # (Auto) 0.0 10^3/uL 10^3/ uL (0.0-0.1) Nucleated RBC % (a uto) 0 % % Nucleated RBCs # 0.0 /100WBC /100W BC PT INR D-Dimer Sodium 137 mmol/L mmol/L (136-145) Potassium 4.7 mmol/L mmol/L (3.5-5.1) Chloride 98 mmol/L mmol/L (98-107) Carbon Dioxide 29 mmol/L mmol/L (22-29) Anion Gap 14.7 (5-19) BUN 5 mg/dL L mg/dL (6-20) Creatinine 0.5 mg/dL L mg/dL (0.7-1.2) GFR Calculation 178.2 mL/min H mL /min (90-130) Glucose 86 mg/dL mg/dL (65-115) Calculated Osmolal ity 281 mOsm/kg L mOs m/kg (285-295) Calcium 9.7 mg/dL mg/dL (8.5-10.5) Total Bilirubin 0.4 mg/dL mg/dL (0.15-1.2) AST 63 U/L H U/L (0-40) ALT 66 U/L H U/L (0-41) Alkaline Phosphata se 98 IU/L IU/L (40-130) Troponin T Baselin e 12 ng/L ng/L (0-15) Troponin T 120 Min [facility] [place] Troponin T NT-Pro-B Natriuret Pep 33 pg/mL pg/mL (0-125) Total Protein 7.3 g/dL g/dL (6.6-8.7) Albumin 4.5 g/dL g/dL (3.5-5.2) Globulin 2.8 g/dL g/dL (1.3-4.6) 08/14/21 08/14/21 13:55 16:02 WBC RBC Hgb Hct MCV MCH MCHC RDW Plt Count MPV Neut % (Auto) Lymph % (Auto) [place] % (Auto) Eos % (Auto) Baso % (Auto) Neut # (Auto) Lymph # (Auto) [place] # (Auto) Eos # (Auto) Baso # (Auto) Nucleated RBC % (a uto) Nucleated RBCs # PT 12.60 SECONDS SEC ONDS (12.1-14.9) INR 0.91 (0.8-1.2) D-Dimer 0.34 ug/mIFEU ug/ mIFEU (0-0.59) Sodium Potassium Chloride Carbon Dioxide Anion Gap BUN Creatinine GFR Calculation Glucose Calculated Osmolal ity Calcium Total Bilirubin AST ALT Alkaline Phosphata se Troponin T Baselin e Troponin T 120 Min [facility] [place] 11.42 ng/L ng/L (0-15) Delta Troponin T -0.58 ABS# L ABS# (0-10) NT-Pro-B Natriuret Pep Total Protein Albumin Globulin EKG Data^: EKG 1: Attestation: I personally reviewed and interpreted this EKG as follows: EKG interpretation date: 08/14/21 Prior EKG tracings: available for review Computer generated interpretation: Normal sinus rhythm with a rate of 78, SD 171, QRS 104, normal axis, no ST segment elevation or depression. Discharge Plan Discharge Patient Disposition: Home Clinical Impression: Chest pain not due to acute coronary syndrome, Chronic GERD Chronic bronchitis Qualifiers: Chronic bronchitis type: simple Qualified Code(s): J41.0 - Simple chronic bronchitis Condition: Stable Prescriptions: New albuterol sulfate 90 mcg/actuation HFA aerosol inhaler 2 inh inhalation Q6H PRN (Reason: shortness of breath or wheezing) Qty: 8.5 RF: 0 prednisone 20 mg tablet 60 mg PO DAILY 5 Days Qty: 10 RF: 0 doxycycline hyclate 100 mg tablet 100 mg PO BID 7 Days Qty: 14 RF: 0 famotidine 40 mg tablet 40 mg PO BID Qty: 30 RF: 0 No Action venlafaxine 50 mg tablet 50 mg PO BID Qty: 60 RF: 1 lisinopril 5 mg tablet 5 mg PO DAILY@06 Qty: 90 RF: 3 atorvastatin 20 mg tablet 20 mg PO DAILY Qty: 30 RF: 5 metoprolol tartrate 50 mg tablet 50 mg PO BID 30 Days Qty: 60 RF: 5 aspirin 81 mg tablet,delayed release (DR/EC) 81 mg PO DAILY@06 MDD see pharmacy comment RF: 0 nitroglycerin 0.4 mg tablet, sublingual 0.4 mg sublingual Q5M PRN (Reason: chest pain) Qty: 30 RF: 0 Discharge Orders: Discharge ED (Routine); Ordered 08/14/21 Ordered By: Mounika Gustafson Referrals: Arianna Hodge MD [Primary Care Provider] - Discharge Diet: Usual diet Discharge Activity: Increase activity as tolerated Patient Instructions: Chest Pain (ED) Activity Restrictions/Additional Instructions: Call to schedule follow-up appointment with your primary care doctor in the next 3 days for recheck. Try to cut down on smoking as much as possible. Avoid alcohol. Return immediately to the ER if you develop recurrent symptoms. Coding Level of Care Code ED Underground Distribution Engineer for Liv Crisostomo
[2021-08-14 14:08] VITALS: BP 145/90; PULSE 78; RESP 17; TEMP 36.6; O2SAT 98
[2021-08-14 14:08] LABS: Basophils % 0.7 %; Eosinophils # 0.2 10^3/uL (0.0-0.8); Eosinophils % 3.1 %; Hematocrit 50.4 % (42.0-52.0); Hemoglobin 17.1 g/dL (11.7-16.6); Lymphocytes # 2.1 10^3/uL (0.8-4.8); Lymphocytes % 37.2 %; Mean Corpuscular HGB Conc 33.9 g/dL (30.0-36.0); Mean Corpuscular Hemoglobin 32.4 pg (28.0-34.0); Mean Corpuscular Volume 95.5 fl (80-94); Mean Platelet Volume 9.7 fL (7.4-10.4); Monocytes # 0.4 10^3/uL (0.2-0.9); Monocytes % 6.6 %; Neutrophils # 2.98 10^3/uL (1.8-7.7); Neutrophils % 52.1 %; Nucleated Red Blood Cells % 0 %; Platelet Count 264 10^3/cmm (130-400); Red Blood Count 5.28 10^6/uL (4.1-5.3); Red Cell Distribution Width 12.6 % (12.1-15.1); White Blood Count 5.7 10^3/uL (4.0-10.0)
[2021-08-14] MEDS: aspirin 81 mg Chew Tablet 324 MG PO (14:16)
[2021-08-14 14:22] LABS: INR 0.91 (0.8-1.2)
[2021-08-14 14:24] LABS: D Dimer 0.34 ug/mIFEU (0-0.59)
[2021-08-14 14:31] LABS: Troponin(5th) Baseline 12 ng/L (0-15)
[2021-08-14 14:40] LABS: Alanine Aminotransferase 66 U/L (0-41); Albumin Level 4.5 g/dL (3.5-5.2); Alkaline Phosphatase 98 IU/L (40-130); Anion Gap 14.7 (5-19); Aspartate Amino Transferase 63 U/L (0-40); Blood Urea Nitrogen 5 mg/dL (6-20); Calcium 9.7 mg/dL (8.5-10.5); Carbon Dioxide 29 mmol/L (22-29); Chloride 98 mmol/L (98-107); Globulin 2.8 g/dL (1.3-4.6); Glomerular Filtration Rate 178.2 mL/min (90-130); Glucose 86 mg/dL (65-115); NT Pro B Type Natriuretic Pept 33 pg/mL (0-125); Osmolality Calculated 281 mOsm/kg (285-295); Potassium 4.7 mmol/L (3.5-5.1); Sodium 137 mmol/L (136-145); Total Bilirubin 0.4 mg/dL (0.15-1.2); Total Protein 7.3 g/dL (6.6-8.7)
--- NOTE | 2021-08-14 14:54 | ECG_ITS ---
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 Measurements Intervals [place] Rate: 78 P: 36 AL: 171 QRS: 50 QRSD: 104 T: 31 QT: 366 QTc: 417 Interpretive Statements SINUS RHYTHM Compared to ECG 08/14/2021 13:04:46 No significant changes Electronically Signed On 08-14-2021 18:41:49 CDT by Anna Kim M.D. [id number] f
--- NOTE | 2021-08-14 15:04 | CTR_ITS ---
PROCEDURE INFORMATION: Exam: CTA Chest With Contrast Exam date and time: 08/14/2021 3:04 PM Age: 46 years old Clinical indication: Chest and back pain. Abnormal x-ray. TECHNIQUE: Imaging protocol: Computed tomographic angiography of the chest with contrast. 3D rendering (Not supervised by radiologist): MIP and/or 3D reconstructed images were created by the technologist. Radiation optimization: All CT scans at this facility use at least one of these dose optimization techniques: automated exposure control; mA and/or kV adjustment per patient size (includes targeted exams where dose is matched to clinical indication); or iterative reconstruction. Contrast material: OMNI 350; Contrast volume: 95 ml; Contrast route: INTRAVENOUS (IV); COMPARISON: CR (CHEST, ) 08/14/2021 1:59 PM RADIATION DOSE METRICS: Total DLP (mGy-cm): 1637.03 FINDINGS: Pulmonary arteries: Assessment for pulmonary embolus is compromised by suboptimal bolus timing. No main or central pulmonary embolus is seen. Aorta: No thoracic aortic aneurysm. No thoracic aortic dissection. Great vessels off aortic arch: An aberrant right subclavian artery is noted. Lungs: No pulmonary consolidation.. No pulmonary mass. Pleural spaces: No pleural effusion.. No pneumothorax. Heart: Borderline cardiomegaly. No pericardial effusion. Mediastinal space: The esophageal wall is mildly thickened distally which may reflect esophagitis. Lymph nodes: A right hilar lymph node measures 1.6 x 1.8 cm. A precarinal lymph node measures 1.0 x 1.4 cm. Calcified mediastinal and left hilar lymph nodes are seen. Diaphragm: Small hiatal hernia. Liver: A simple left hepatic cyst measures 1.3 cm. There are enhancing lesions in the liver measuring up to 2.5 cm that are poorly characterized. The gallbladder has been removed. Bones/joints: Bilateral Caldwell rods are noted. Old, healed left clavicular fracture. No acute fracture is seen. . CT/CT angio chest 17525 IMPRESSION: 1. No thoracic aortic aneurysm. No thoracic aortic dissection. 2. Assessment for pulmonary embolus is compromised by suboptimal bolus timing. No main or central pulmonary embolus is seen. 3. Small hiatal hernia with possible esophagitis. 4. Mediastinal and right hilar lymphadenopathy. 5. Enhancing liver lesions that are poorly characterized. Recommend nonemergent MR abdomen hepatic protocol with and without contrast to better characterize. 6. Borderline cardiomegaly with aberrant right subclavian artery. Radiation Dose CTDIVOL = (mGy): DLP = 1637.03 (mGy-cm)
[2021-08-14] MEDS: iohexol 350 mg/mL 100 mL Btl IV (15:33)
[2021-08-14 15:42] VITALS: BP 139/95; PULSE 81; RESP 18; TEMP 36.6; O2SAT 97
[2021-08-14 16:37] LABS: Troponin 5 2HR 11.42 ng/L (0-15)
[2021-08-14 16:47] LABS: Troponin 5 2HR Delta -0.58 ABS# (0-10)
[2021-08-14 17:01] VITALS: BP 146/95; PULSE 83; O2SAT 93
== END 2021-08-14 17:00 | disposition home or self-care (01) ==
PROVIDERS: Emergency Medicine; Emergency Provider Family Medicine; PCP Family Medicine
DX: R07.9 Chest pain, unspecified (principal); K21.9 Gastro-esophageal reflux disease without esophagitis; J44.1 Chronic obstructive pulmonary disease with (acute) exacerbation; I25.10 Atherosclerotic heart disease of native coronary artery without angina pectoris; I25.2 Old myocardial infarction; F17.210 Nicotine dependence, cigarettes, uncomplicated; Z82.49 Family history of ischemic heart disease and other diseases of the circulatory system; Z79.82 Long term (current) use of aspirin
CPT/HCPCS: 36415; 71045; 71275; 80053; 83880; 84484; 85025; 85378; 85610; 93005; 99283; Q9967

== ENCOUNTER → 2021-08-17 18:04 | Outpatient (BNVA) | payer MEDICAID, SELFPAY | PROVIDERS: PCP Family Medicine; Visit Provider Family Medicine | DX: K76.9 Liver disease, unspecified (principal) | CPT/HCPCS: 80076; 86705; 86706; 86709; 86803; 87340 ==

== ENCOUNTER → 2021-09-01 07:44 | Outpatient (BNVA) | payer MEDICAID, SELFPAY | PROVIDERS: PCP Family Medicine; Visit Provider Nurse Practitioner Psychiatric/Mental Health | DX: F33.9 Major depressive disorder, recurrent, unspecified (principal); F41.1 Generalized anxiety disorder | CPT/HCPCS: 99213 ==

== ENCOUNTER → 2021-11-10 09:43 | Outpatient (BNVA) | payer MEDICAID, OTHER, SELFPAY | PROVIDERS: PCP Family Medicine; Visit Provider Nurse Practitioner Psychiatric/Mental Health | DX: F33.9 Major depressive disorder, recurrent, unspecified (principal); F41.1 Generalized anxiety disorder; F10.20 Alcohol dependence, uncomplicated | CPT/HCPCS: 99213 ==

== ENCOUNTER 2021-11-23 08:20 | Emergency (ER) | payer MEDICAID, SELFPAY ==
--- NOTE | 2021-11-23 08:22 | XR_ITS ---
WS: [id number] XR chest 1V portable [id number] REASON FOR EXAM: congestion/cough FINDINGS: Mild tortuosity thoracic aorta and normal heart size. Calcified granulomatous disease in both hemithoraces. No acute pulmonary parenchymal or pleural abnormality. Thoracic scoliosis with Caldwell rods. The chest appears unchanged compared to 08/14/2021. XR/XR chest 1V portable [id number] IMPRESSION: No acute chest abnormality.
[2021-11-23 08:38] VITALS: BP 125/83; PULSE 88; RESP 20; TEMP 37.9; O2SAT 97
[2021-11-23 08:43] VITALS: BP 125/83; PULSE 88; RESP 20; TEMP 37.9; O2SAT 97
--- NOTE | 2021-11-23 08:51 | W.ED.URI ---
HPI - URI/Sore Throat General: Chief Complaint: Fever Stated Complaint: Congestion, coughing Time Seen by Provider: 11/23/21 08:22 Source: patient and family () Mode of arrival: ambulatory Limitations: no limitations History of Present Illness: Patient is a 46-year-old male who presents to ED today along with his for complaints of chest congestion, productive cough, head and nasal congestion, body aches, and low-grade fevers. Symptoms have been present over the past 3 to 4 days. states herself has identical symptoms and has had a negative PCR COVID test. They are both unvaccinated for COVID. Patient is an every day smoker. He is not having any chest pain. He does have shortness of breath with exertion. No abdominal pain, vomiting, diarrhea. No loss of taste or smell. MD elicited complaint: fever, cough, nasal congestion and sinus pain Onset (ago): day(s) Consistency: constant Description of mucous: clear and green Able to tolerate fluids by mouth: Yes Context: sick contacts () Associated symptoms: Reports fever(s), nasal congestion and sinus pain; Deny abdominal pain, chest pain, diarrhea, headache(s), nausea or vomiting Treatments prior to arrival: none Review of Systems Const: Reports: fever(s), body aches and fatigue; Denies: change in appetite or change in weight Eyes: Denies: change in vision, blurry vision, photophobia, floaters or seeing flashes ENMT: Reports: nasal discharge, nasal congestion and sinus pain; Denies: throat pain or odynophagia Card: Reports: dyspnea on exertion; Denies: chest pain, palpitations, irregular heart rhythm, edema, swelling of feet/ankles, lightheadedness, syncope, pre-syncope or orthopnea Resp: Reports: productive cough and chest congestion; Denies: dyspnea, wheezing, stridor or hemoptysis GI: Denies: abdominal pain, nausea, vomiting or diarrhea Musc: Denies: neck pain, back pain, extremity pain or joint pain Skin/Breast: Denies: rash Neuro: Denies: headache(s), numbness in extremities, weakness in extremities, sensory changes or dizziness PFS ED PFSH: Medical History Acute non-ST elevation myocardial infarction (NSTEMI) Alcohol dependence Benign essential HTN Coronary artery disease Elevated troponin Fatigue Gastroesophageal reflux disease Heart disease High blood pressure Non-ST elevation [place] (NSTEMI) Psychiatric care Smoking Ventricular arrhythmia Surgical History History of cholecystectomy Previous back surgery Family History Father CAD (coronary artery disease) Cancer Brother CAD (coronary artery disease) Hypertension Cancer Lung disease Sister Cancer Chronic kidney disease (CKD) Suicide Denies family history of Diabetes Clotting disorder Dementia Anesthesia complication Bleeding disorder Stroke Social History Smoking and tobacco status: current every day smoker cigarettes Packs smoked per day: 1.5 Alcohol intake: current Alcohol intake frequency: 3 or more drinks per day Alcohol type: beer Household members: spouse and children Marital status: Number of children: 2 Highest education level completed: 8th Grade service: No Current occupational status: unemployed Pets and animals: Yes Current gender identity: Male Physical Exam Const: COMMON NORMALS: no acute distress, patient oriented x3, no limitations, alert and well nourished GENERAL APPEARANCE: cooperative HENMT: COMMON NORMALS: normocephalic and atraumatic HEAD & SCALP: normocephalic and atraumatic FACE & SINUS: normal facial exam Neck/C-Spine: COMMON NORMALS: full ROM and no lymphadenopathy Chest: COMMONS NORMALS: normal inspection of the chest and normal palpation of entire chest wall Resp: COMMON NORMALS: normal respiratory effort and clear to auscultation bilaterally AUSCULTATION: clear to auscultation bilaterally OTHER: course productive cough noted Cardio: COMMON NORMALS: regular rate and regular rhythm RATE: regular rate RHYTHM: regular rhythm Extremity: COMMON NORMALS: normal to inspection, capillary refill normal, no clubbing, cyanosis or edema, no calf tenderness and no pedal edema Neuro: COMMON NORMALS: patient oriented x3 SENSORIUM/ORIENTATION: Yes alert Skin: COMMON NORMALS: no rashes or lesions noted GENERAL SKIN EXAM: no rashes or lesions noted Course Vital Signs: Vital signs: Vital Signs Temperature 100.2 F H 11/23/21 08:43 Pulse Rate 88 11/23/21 08:43 Respiratory Rate 20 H 11/23/21 08:43 Blood Pressure 125/83 11/23/21 08:43 Pulse Oximetry 97 11/23/21 08:43 MDM - URI/Sore Throat Medical Decision Making Patient is in NAD. Vitals look good apart from low grade fever of 100.2. CXR normal. Rapid COVID negative. [facility] PCR pending. Will place on steroids/abx for bronchitis. Recommend contacting PCP if his PCR returns positive as he would qualify for outpatient treatment based on comorbidities. Return to ED precautions verbally given to patient. Lab Data Radiology Impressions Chest X-Ray 11/23/21 08:22 IMPRESSION: No acute chest abnormality. Laboratory Results SARS-CoV-2 Ag (Rapid) Negative (Negative) 11/23/21 08:51 Discharge Plan Discharge Patient Disposition: Home Clinical Impression: Bronchitis Condition: Stable Prescriptions: New dexamethasone 6 mg tablet 6 mg PO DAILY Qty: 6 0RF doxycycline monohydrate 100 mg capsule 100 mg PO Q12H 7 Days Qty: 14 0RF No Action venlafaxine 50 mg tablet 50 mg PO BID Qty: 60 2RF Rx Instructions: Take 1 tablet by mouth every morning and afternoon lisinopril 5 mg tablet 5 mg PO DAILY@06 Qty: 90 3RF metoprolol tartrate 50 mg tablet 50 mg PO BID 30 Days Qty: 60 5RF nitroglycerin 0.4 mg tablet, sublingual 0.4 mg sublingual Q5M PRN (Reason: chest pain) Qty: 50 3RF Rx Instructions: do not exceed 3 doses per episode famotidine 40 mg tablet 40 mg PO BID Qty: 60 1RF atorvastatin 20 mg tablet 20 mg PO DAILY Qty: 30 5RF albuterol sulfate 90 mcg/actuation HFA aerosol inhaler 2 inh inhalation Q6H PRN (Reason: shortness of breath or wheezing) Qty: 8.5 0RF aspirin 81 mg tablet,delayed release (DR/EC) 81 mg PO DAILY@06 MDD see pharmacy comment 0RF Discharge Orders: Discharge ED (Routine); Ordered 11/23/21 Ordered By: Magy Bueno Referrals: Arianna Hodge MD [Primary Care Provider] - Activity Restrictions/Additional Instructions: As we discussed your send out /PCR COVID test is pending. If positive you need to contact your primary care provider to be set up with outpatient treatment for COVID as you would be at risk for severe progression. Please return to the emergency department for worsening shortness of breath, difficulty breathing, chest pain, any other concerns you may have. Hope you begin to feel better soon. 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
[2021-11-23] MEDS: acetaminophen 500 mg Tablet 1000 MG PO (09:05)
[2021-11-23 10:02] LABS: SARS Covid-2 Antigen Negative (Negative)
[2021-11-23 10:25] VITALS: BP 122/76; PULSE 78; RESP 19; TEMP 37.2; O2SAT 96
[2021-11-23 12:07] LABS: Adenovirus Not Detected (NOT DETECT); Chlamydia Pneumoniae Not Detected (NOT DETECT); Coronavirus 229E,HKU1,NL63,OC4 Not Detected (NOT DETECT); Human Metapneumovirus Not Detected (NOT DETECT); Human Rhinovirus/Enterovirus Not Detected (NOT DETECT); Influenza A Not Detected (NOT DETECT); Influenza A H1 Not Detected (NOT DETECT); Influenza A H1-2009 Not Detected (NOT DETECT); Influenza A H3 Not Detected (NOT DETECT); Influenza B Not Detected (NOT DETECT); Mycoplasma Pneumoniae Not Detected (NOT DETECT); Parainfluenza Virus Type 1 Not Detected (NOT DETECT); Parainfluenza Virus Type 2 Not Detected (NOT DETECT); Parainfluenza Virus Type 3 Not Detected (NOT DETECT); Parainfluenza Virus Type 4 Not Detected (NOT DETECT); Respiratory Syncytial Virus A Not Detected (NOT DETECT); Respiratory Syncytial Virus B Not Detected (NOT DETECT); SARS-COV-2 Not Detected (NOT DETECT)
== END 2021-11-23 10:26 | disposition home or self-care (01) ==
PROVIDERS: Emergency Provider Physician Assistant; PCP Family Medicine
DX: J40 Bronchitis, not specified as acute or chronic (principal); Z79.82 Long term (current) use of aspirin; I25.2 Old myocardial infarction; I10 Essential (primary) hypertension; I25.10 Atherosclerotic heart disease of native coronary artery without angina pectoris; F17.210 Nicotine dependence, cigarettes, uncomplicated; Z20.822 Contact with and (suspected) exposure to COVID-19
CPT/HCPCS: 71045; 87426; 87635; 99283

== ENCOUNTER 2021-12-01 12:41 | Emergency (ER) | payer MEDICAID, SELFPAY ==
[2021-12-01 12:44] VITALS: PULSE 87; RESP 20; TEMP 36.8; O2SAT 97; BMI 29.7
--- NOTE | 2021-12-01 13:02 | ECG_ITS ---
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
--- NOTE | 2021-12-01 13:02 | XR_ITS ---
WS: [id number] XR chest 1V portable [id number] REASON FOR EXAM: chest FINDINGS: Previous chest x-rays of 08/14/2021 and 11/23/2021 reviewed for comparison. No acute pulmonary parenchymal or pleural abnormality is identified. Moderate tortuosity the thoracic aorta and normal heart size. Thoracic scoliosis and Caldwell rods. XR/XR chest 1V portable [id number] IMPRESSION: No acute chest abnormality identified.
--- NOTE | 2021-12-01 13:08 | W.ED.CHESTPA ---
HPI - Chest Pain General: Chief Complaint: Chest Pain Stated Complaint: CHEST PAIN X 1 WEEK, R LEG PAIN Time Seen by Provider: 12/01/21 12:45 History of Present Illness: 46-year-old male presents emergency room with complaint of chest pain. He took aspirin and nitro today. He was sent here from the [facility] clinic. He has substernal chest pain radiated to both arms. He states he has had this pain intermittently for the last week. He did get some relief with nitro. A year ago he had an angiogram that was reported to be normal. He is not having any shortness of breath or diaphoresis at this time he is not diabetic he does smoke. Does have a history of hypertension. MD complaint: chest pain Onset (ago): week(s) Timing of current episode: episodic Prior episodes: Yes Onset: during rest Pain location: substernal Pain radiation: right arm and left arm Severity: moderate Associated symptoms: Deny abdominal pain, dyspnea, fever(s), nausea or vomiting Review of Systems Const: Denies: fever(s), chills, body aches, change in appetite, fatigue or malaise ENMT: Denies: throat pain, ear or mastoid pain, nasal discharge or nasal congestion Card: Denies: chest pain, edema, dyspnea on exertion or orthopnea Resp: Denies: dyspnea, productive cough or non-productive cough GI: Denies: abdominal pain, nausea, vomiting, hematemesis, coffee ground emesis, diarrhea, constipation, bloating, hematochezia or melena : Denies: flank pain, dysuria, urinary frequency or urinary urgency Skin/Breast: Denies: rash or pruritus [facility] ED PFSH: Medical History Acute non-ST elevation myocardial infarction (NSTEMI) Alcohol dependence Benign essential HTN Coronary artery disease Elevated troponin Fatigue Gastroesophageal reflux disease Heart disease High blood pressure Non-ST elevation [place] (NSTEMI) Psychiatric care Smoking Ventricular arrhythmia Surgical History History of cholecystectomy Previous back surgery Family History Father CAD (coronary artery disease) Cancer Brother CAD (coronary artery disease) Hypertension Cancer Lung disease Sister Cancer Chronic kidney disease (CKD) Suicide Denies family history of Diabetes Clotting disorder Dementia Anesthesia complication Bleeding disorder Stroke Social History Smoking and tobacco status: current every day smoker cigarettes Packs smoked per day: 1.5 Alcohol intake: current Alcohol intake frequency: 3 or more drinks per day Alcohol type: beer Household members: spouse and children Marital status: Number of children: 2 Highest education level completed: 8th Grade service: No Current occupational status: unemployed Pets and animals: Yes Current gender identity: Male Physical Exam Const: GENERAL APPEARANCE: cooperative and comfortable ORIENTATION/CONSCIOUSNESS: Yes awake, Yes oriented to person, Yes oriented to place and Yes oriented to time HENMT: COMMON NORMALS: normocephalic, atraumatic and hearing grossly normal bilaterally HEAD & SCALP: normocephalic and atraumatic Neck/C-Spine: COMMON NORMALS: no JVD Resp: COMMON NORMALS: normal respiratory effort, No retractions, No use of accessory muscles and clear to auscultation bilaterally AUSCULTATION: clear to auscultation bilaterally Cardio: COMMON NORMALS: no JVD, regular rate, regular rhythm and No murmurs present (Cardio) RATE: regular rate RHYTHM: regular rhythm GI: COMMON NORMALS: Soft to palpation and No hepatosplenomegaly present AUSCULTATION: Yes normoactive bowel sounds PALPATION: Yes Soft to palpation, No Tenderness to palpation present (GI), No Guarding due to palpation present (GI) and Yes No hepatosplenomegaly present Extremity: COMMON NORMALS: normal to inspection, capillary refill normal, no clubbing, cyanosis or edema, no calf tenderness and no pedal edema Neuro: SENSORIUM/ORIENTATION: Yes oriented to person, Yes oriented to place and Yes oriented to time Skin: COMMON NORMALS: no rashes or lesions noted GENERAL SKIN EXAM: no rashes or lesions noted Course Vital Signs: Vital signs: Vital Signs Temperature 98.0 F 12/01/21 16:28 Pulse Rate 82 12/01/21 18:00 Respiratory Rate 18 12/01/21 16:28 Blood Pressure 127/85 12/01/21 18:00 Pulse Oximetry 100 12/01/21 18:00 MDM - Chest Pain Medical Decision Making Labs imaging EKG reviewed. No acute findings. Patient previously had normal sestamibi stress test in 2017. At this time he is not having any chest discomfort. We will discharge him home on isosorbide mononitrate aspirin daily and have him follow-up in cardiology clinic within the next week. He does admit to regular and fairly heavy drinking. I suspect a lot of his symptoms are related to alcoholic gastritis and reflux. We will have him start Prilosec 20 mg once a day [id number]. Recommend alcohol abstinence. Any worsening or change symptoms return to emergency room. Lab Data : 12/01/21 13:00 12/01/21 13:00 Radiology Impressions Chest X-Ray 12/01/21 13:02 IMPRESSION: No acute chest abnormality identified. Laboratory Results WBC 8.1 10^3/uL (4.0-10.0) 12/01/21 13:00 RBC 4.59 10^6/uL (4.1-5.3) 12/01/21 13:00 Hgb 15.0 g/dL (11.7-16.6) 12/01/21 13:00 Hct 44.4 % (42.0-52.0) 12/01/21 13:00 MCV 96.7 fl (80-94) H 12/01/21 13:00 MCH 32.7 pg (28.0-34.0) 12/01/21 13:00 MCHC 33.8 g/dL (30.0-36.0) 12/01/21 13:00 RDW 12.3 % (12.1-15.1) 12/01/21 13:00 Plt Count 317 10^3/cmm (130-400) 12/01/21 13:00 MPV 9.6 fL (7.4-10.4) 12/01/21 13:00 Neut % (Auto) 58.2 % 12/01/21 13:00 Lymph % (Auto) 31.2 % 12/01/21 13:00 [place] % (Auto) 8.2 % 12/01/21 13:00 Eos % (Auto) 0.7 % 12/01/21 13:00 Baso % (Auto) 0.7 % 12/01/21 13:00 Neut # (Auto) 4.70 10^3/uL (1.8-7.7) 12/01/21 13:00 Lymph # (Auto) 2.5 10^3/uL (0.8-4.8) 12/01/21 13:00 [place] # (Auto) 0.7 10^3/uL (0.2-0.9) 12/01/21 13:00 Eos # (Auto) 0.1 10^3/uL (0.0-0.8) 12/01/21 13:00 Baso # (Auto) 0.1 10^3/uL (0.0-0.1) 12/01/21 13:00 Nucleated RBC % (auto) 0 % 12/01/21 13:00 Nucleated RBCs # 0.0 /100WBC 12/01/21 13:00 Sodium 131 mmol/L (136-145) L 12/01/21 13:00 Potassium 4.3 mmol/L (3.5-5.1) 12/01/21 13:00 Chloride 94 mmol/L (98-107) L 12/01/21 13:00 Carbon Dioxide 28 mmol/L (22-29) 12/01/21 13:00 Anion Gap 13.3 (5-19) 12/01/21 13:00 BUN 8 mg/dL (6-20) 12/01/21 13:00 Creatinine 0.6 mg/dL (0.7-1.2) L 12/01/21 13:00 GFR Calculation 144.4 mL/min (90-130) H 12/01/21 13:00 Glucose 76 mg/dL (65-115) 12/01/21 13:00 Calculated Osmolality 269 mOsm/kg (285-295) L 12/01/21 13:00 Calcium 8.3 mg/dL (8.5-10.5) L 12/01/21 13:00 Total Bilirubin 0.3 mg/dL (0.15-1.2) 12/01/21 13:00 AST 34 U/L (0-40) 12/01/21 13:00 ALT 33 U/L (0-41) 12/01/21 13:00 Alkaline Phosphatase 86 IU/L (40-130) 12/01/21 13:00 Troponin T Baseline 22 ng/L (0-15) H 12/01/21 13:00 Troponin T 120 Minute 24.18 ng/L (0-15) H 12/01/21 15:14 Delta Troponin T 2.18 ABS# (0-10) 12/01/21 15:14 Total Protein 6.0 g/dL (6.6-8.7) L 12/01/21 13:00 Albumin 3.9 g/dL (3.5-5.2) 12/01/21 13:00 Globulin 2.1 g/dL (1.3-4.6) 12/01/21 13:00 Discharge Plan Discharge Patient Disposition: Home Clinical Impression: Atypical chest pain, Esophagitis, reflux, Alcoholic gastritis Condition: Stable Prescriptions: New isosorbide mononitrate 30 mg tablet extended release 24 hr 30 mg PO DAILY Qty: 30 0RF Prilosec OTC 20 mg tablet,delayed release (DR/EC) 20 mg PO DAILY 28 Days 0RF Carafate 1 gram tablet 1 g PO TID 56 Days Qty: 168 0RF No Action venlafaxine 50 mg tablet 50 mg PO BID Qty: 60 2RF Rx Instructions: Take 1 tablet by mouth every morning and afternoon lisinopril 5 mg tablet 5 mg PO DAILY@06 Qty: 90 3RF metoprolol tartrate 50 mg tablet 50 mg PO BID 30 Days Qty: 60 5RF nitroglycerin 0.4 mg tablet, sublingual 0.4 mg sublingual Q5M PRN (Reason: chest pain) Qty: 50 3RF Rx Instructions: do not exceed 3 doses per episode famotidine 40 mg tablet 40 mg PO BID Qty: 60 1RF albuterol sulfate 90 mcg/actuation HFA aerosol inhaler 2 inh inhalation Q6H PRN (Reason: shortness of breath or wheezing) Qty: 8.5 0RF aspirin 81 mg tablet,delayed release (DR/EC) 81 mg PO DAILY@06 0RF doxycycline hyclate 100 mg capsule 100 mg PO Q12H 0RF Rx Instructions: for 7 days dexamethasone 6 mg tablet 6 mg PO DAILY 0RF Rx Instructions: for 6 days atorvastatin 20 mg tablet 20 mg PO BEDTIME 0RF Discharge Orders: Discharge ED (Routine); Ordered 12/01/21 Ordered By: Allan Cardona Referrals: Arianna Hodge MD [Primary Care Provider] - Discharge Activity: Limit activity as instructed Patient Instructions: Opioid Safety Activity Restrictions/Additional Instructions: Abstain from alcohol. Follow-up with cardiology clinic next week. Coding Level of Care Code ED Wheel Assembler for Liv Crisostomo
[2021-12-01 13:11] VITALS: BP 131/103; PULSE 85; RESP 19; O2SAT 98
[2021-12-01 13:12] LABS: Basophils # 0.1 10^3/uL (0.0-0.1); Basophils % 0.7 %; Eosinophils # 0.1 10^3/uL (0.0-0.8); Eosinophils % 0.7 %; Hematocrit 44.4 % (42.0-52.0); Lymphocytes # 2.5 10^3/uL (0.8-4.8); Lymphocytes % 31.2 %; Mean Corpuscular HGB Conc 33.8 g/dL (30.0-36.0); Mean Corpuscular Hemoglobin 32.7 pg (28.0-34.0); Mean Corpuscular Volume 96.7 fl (80-94); Mean Platelet Volume 9.6 fL (7.4-10.4); Monocytes # 0.7 10^3/uL (0.2-0.9); Monocytes % 8.2 %; Neutrophils % 58.2 %; Nucleated Red Blood Cells % 0 %; Platelet Count 317 10^3/cmm (130-400); Red Blood Count 4.59 10^6/uL (4.1-5.3); Red Cell Distribution Width 12.3 % (12.1-15.1); White Blood Count 8.1 10^3/uL (4.0-10.0)
[2021-12-01 13:41] LABS: Troponin(5th) Baseline 22 ng/L (0-15)
[2021-12-01 13:45] LABS: Alanine Aminotransferase 33 U/L (0-41); Albumin Level 3.9 g/dL (3.5-5.2); Alkaline Phosphatase 86 IU/L (40-130); Anion Gap 13.3 (5-19); Aspartate Amino Transferase 34 U/L (0-40); Blood Urea Nitrogen 8 mg/dL (6-20); Calcium 8.3 mg/dL (8.5-10.5); Carbon Dioxide 28 mmol/L (22-29); Chloride 94 mmol/L (98-107); Globulin 2.1 g/dL (1.3-4.6); Glomerular Filtration Rate 144.4 mL/min (90-130); Glucose 76 mg/dL (65-115); Osmolality Calculated 269 mOsm/kg (285-295); Potassium 4.3 mmol/L (3.5-5.1); Sodium 131 mmol/L (136-145); Total Bilirubin 0.3 mg/dL (0.15-1.2)
[2021-12-01] MEDS: aspirin 81 mg Chew Tablet 324 MG PO (14:01)
--- NOTE | 2021-12-01 15:02 | ECG_ITS ---
[facility] Test Date: 2021-12-01 Pat Name: Miky Edwards Department: Room: Gender: Male Associate Store Leader: : 1975 Requested By: Allan Montez Order Number: [id number] Reading MD: RAMY CUTLER Measurements Intervals [place] Rate: 76 P: 15 SD: 169 QRS: 23 QRSD: 103 T: 57 QT: 400 QTc: 451 Interpretive Statements SINUS RHYTHM Compared to ECG 12/01/2021 12:51:56 No significant changes Electronically Signed On 12-01-2021 21:49:14 GLOST TILE SHADER by RAMY CUTLER [id number]
[2021-12-01 15:43] LABS: Troponin 5 2HR 24.18 ng/L (0-15)
[2021-12-01 15:44] LABS: Troponin 5 2HR Delta 2.18 ABS# (0-10)
[2021-12-01 16:14] VITALS: BP 134/97; PULSE 91; RESP 18; O2SAT 98
[2021-12-01 16:28] VITALS: BP 130/89; PULSE 83; RESP 18; TEMP 36.7; O2SAT 100
[2021-12-01 18:00] VITALS: BP 127/85; PULSE 82; O2SAT 100
--- NOTE | 2021-12-02 12:50 | DCPLANNER ---
Addendum entered by Hue Adair 12/16/21 22:27: Patient had a follow up appointment scheduled for 12.09.21 with heart care - patient did attend appointment. Original Note: probation manager had message to schedule a follow up appointment for patient with [facility]. probation manager called [facility], spoke with Carmen, gave clinic patients information. A follow up appointment was scheduled for Thursday, December 09, 2021 at 9:45 with BREAKER OPERATOR, Cheli Skelton. probation manager called patient and gave patient the appointment information.
== END 2021-12-01 17:40 | disposition home or self-care (01) ==
PROVIDERS: Emergency Provider Family Medicine; PCP Family Medicine
DX: R07.89 Other chest pain (principal); K21.00 Gastro-esophageal reflux disease with esophagitis, without bleeding; K29.20 Alcoholic gastritis without bleeding; Z79.82 Long term (current) use of aspirin; I25.2 Old myocardial infarction; I10 Essential (primary) hypertension; I25.10 Atherosclerotic heart disease of native coronary artery without angina pectoris; F17.210 Nicotine dependence, cigarettes, uncomplicated
CPT/HCPCS: 36415; 71045; 80053; 84484; 85025; 93005; 99284

== ENCOUNTER → 2021-12-21 10:15 | Outpatient (BNVA) | payer MEDICAID, SELFPAY | PROVIDERS: PCP Family Medicine; Visit Provider Internal Medicine Cardiovascular Disease | DX: E78.5 Hyperlipidemia, unspecified (principal); I31.3 Pericardial effusion (noninflammatory); I42.6 Alcoholic cardiomyopathy; I25.119 Atherosclerotic heart disease of native coronary artery with unspecified angina pectoris | CPT/HCPCS: 99214 ==

== ENCOUNTER 2021-12-21 11:22 | Outpatient (CLI) | payer MEDICAID, SELFPAY ==
[2021-12-21 12:17] LABS: Alanine Aminotransferase 19 U/L (0-41); Albumin Level 4.1 g/dL (3.5-5.2); Alkaline Phosphatase 96 IU/L (40-130); Aspartate Amino Transferase 23 U/L (0-40); Creatine Phosphokinase 94 U/L (39-308); Globulin 2.9 g/dL (1.3-4.6); Total Bilirubin 0.4 mg/dL (0.15-1.2)
== END 2021-12-21 11:23 | disposition home or self-care (01) ==
LOC: LAB 11:25
PROVIDERS: PCP Family Medicine; Visit Provider Internal Medicine Cardiovascular Disease
DX: E78.5 Hyperlipidemia, unspecified (principal); M79.606 Pain in leg, unspecified
CPT/HCPCS: 36415; 80076; 82550

== ENCOUNTER → 2022-02-02 07:29 | Outpatient (BNVA) | payer MEDICAID, SELFPAY | PROVIDERS: PCP Family Medicine; Visit Provider Nurse Practitioner Psychiatric/Mental Health | DX: F33.9 Major depressive disorder, recurrent, unspecified (principal); F41.1 Generalized anxiety disorder; F10.20 Alcohol dependence, uncomplicated; Z79.899 Other long term (current) drug therapy | CPT/HCPCS: 99214 ==

== ENCOUNTER → 2022-02-03 09:11 | Outpatient (BNVA) | payer MEDICAID, SELFPAY | PROVIDERS: PCP Family Medicine; Visit Provider Internal Medicine Critical Care Medicine | DX: R59.0 Localized enlarged lymph nodes (principal); J44.9 Chronic obstructive pulmonary disease, unspecified; F17.210 Nicotine dependence, cigarettes, uncomplicated; K21.9 Gastro-esophageal reflux disease without esophagitis; I10 Essential (primary) hypertension | CPT/HCPCS: 80053; 99204 ==

== ENCOUNTER 2022-02-24 09:41 | Outpatient (CLI) | payer MEDICAID, SELFPAY ==
--- NOTE | 2022-02-24 10:00 | CT_ITS ---
WS: [id number] CT CHEST WITHOUT INTRAVENOUS CONTRAST HISTORY: Right hilar lymphadenopathy TECHNIQUE: Contiguous 5 mm axial imaging performed on the thorax. Coronal and sagittal reformats are submitted. All CT scans at [facility] use at least one of these dose optimization techniques: automated exposure control; mA and/or kV adjustment per patient size (includes targeted exams where dose is matched to clinical indication); or iterative reconstruction. CONTRAST: None DLP: 933.40 mGy.cm COMPARISON: 08/14/2021 Lungs and central airway: Mild pulmonary hyperinflation. No mass or nodule. Pleura: Normal. No pleural effusion. Heart and pericardium: Very mild cardiomegaly. There are a few scattered coronary artery calcificatio ns. Mediastinum and cira: No mediastinal or hilar adenopathy is identified. There are several small lymph nodes within the mediastinum and hilar regions on this unenhanced study. Benign calcified subcarinal and LEFT hilar lymph nodes. Vessels: Mild atherosclerosis aorta with no aneurysm. Normal size pulmonary artery. Aberrant RIGHT julio bclavian artery. Chest wall and lower neck: No soft tissue masses. Upper abdomen: Stable hepatic cyst measuring 10 mm in the LEFT lobe. There is artifact through the li lazarus from the patient's posterior fusion hardware. No adrenal mass. Prior cholecystectomy. Osseous structures: Extensive posterior lumbar fusion hardware. CT/CT chest wo con [id number] IMPRESSION: 1. No pulmonary mass or adenopathy identified on this unenhanced examination. 2. Emphysema. 3. Aberrant RIGHT subclavian artery. 4. Prior cholecystectomy.
== END 2022-02-24 09:42 | disposition home or self-care (01) ==
LOC: RAD 09:42
PROVIDERS: PCP Family Medicine; Visit Provider Internal Medicine Critical Care Medicine
DX: R59.0 Localized enlarged lymph nodes (principal)
CPT/HCPCS: 71250

== ENCOUNTER → 2022-04-05 09:39 | Outpatient (BNVA) | payer MEDICAID, SELFPAY | PROVIDERS: PCP Family Medicine; Visit Provider Internal Medicine Critical Care Medicine | DX: J44.9 Chronic obstructive pulmonary disease, unspecified (principal); R59.0 Localized enlarged lymph nodes; F17.210 Nicotine dependence, cigarettes, uncomplicated; I10 Essential (primary) hypertension | CPT/HCPCS: 99214 ==

== ENCOUNTER → 2022-04-20 15:25 | Outpatient (BNVA) | payer MEDICAID, SELFPAY | PROVIDERS: PCP Family Medicine; Visit Provider Nurse Practitioner | DX: M19.041 Primary osteoarthritis, right hand (principal) | CPT/HCPCS: 73130 ==

== ENCOUNTER → 2022-07-11 13:47 | Outpatient (BNVA) | payer MEDICAID, SELFPAY | PROVIDERS: PCP Family Medicine; Visit Provider Nurse Practitioner Family | DX: I25.119 Atherosclerotic heart disease of native coronary artery with unspecified angina pectoris (principal); I10 Essential (primary) hypertension; F17.210 Nicotine dependence, cigarettes, uncomplicated | CPT/HCPCS: 99214 ==